=== PATIENT | female | born 1970 | race Caucasian/White ===

== ENCOUNTER 2016-08-31 12:34 | Emergency (ER) | payer SELFPAY ==
--- NOTE | 2016-08-31 13:40 | ER Document Report ---
HPI - HPI Pain Level: Denies Context: 46 yo female c/o facial pain, purulent nasal drainage and cough x 5 days. subjective fever, + chills Associated Symptoms: Chills, Nonproductive cough. denies: Fever Exacerbated by: Supine Relieved by: Denies Similar symptoms previously: No Recently seen / treated by doctor: No - ROS Systems Reviewed and Negative: Yes All other systems reviewed and negative - REPRODUCTIVE LMP: TUBAL Reproductive: DENIES: : - DERM Skin Color: Normal, [place] Past Medical History - General Information source: Patient - Social History Smoking Status: Current Every Day Smoker Frequency of alcohol use: None Drug Abuse: None Lives with: Family Family History: Reviewed & Not Pertinent Pulmonary Medical History: Reports: Hx Bronchitis, Hx Pneumonia - 1997 Neurological Medical History: Reports: Hx Migraine Renal/ Medical History: Denies: Hx Peritoneal Dialysis Past Surgical History: Reports: Hx Tubal Ligation - Immunizations Hx Diphtheria, Pertussis, Tetanus Vaccination: No Vertical Provider Document - CONSTITUTIONAL Agree With Documented VS: Yes Exam Limitations: No Limitations General Appearance: WD/WN, No Apparent Distress - INFECTION CONTROL TRAVEL OUTSIDE OF THE [place] IN LAST 30 DAYS: No - HEENT HEENT: Atraumatic Notes: + tenderness right frontal and maxillary sinuses - NECK Neck: Normal Inspection, Supple - RESPIRATORY Respiratory: Breath Sounds Normal, No Respiratory Distress O2 Sat by Pulse Oximetry: 96 - CARDIOVASCULAR Cardiovascular: Regular Rate, Regular Rhythm - GI/ABDOMEN Gastrointestinal: Abdomen Soft, Abdomen Non-Tender - MUSCULOSKELETAL/EXTREMETIES Musculoskeletal/Extremeties: MAEW, FROM - NEURO Level of Consciousness: Awake, Alert, Appropriate Course - Vital Signs Vital signs: Temp Pulse Resp BP Pulse Ox 98.2 F 98 14 116/79 96 08/31/16 12:38 08/31/16 12:38 08/31/16 12:38 08/31/16 12:38 08/31/16 12:38 Discharge - Discharge Clinical Impression: Sinusitis Qualifiers: Sinusitis location: unspecified location Chronicity: acute Recurrence: non- recurrent Qualified Code(s): J01.90 - Acute sinusitis, unspecified Instructions: Sinusitis ([facility]), Antibiotic Therapy ([facility]), Oral Narcotic Medication ([facility]) Additional Instructions: Take meds as prescribed recommend Mucinex in addition to prescribed meds push water intake follow up with primary care if symptoms persist or worsen Prescriptions: Amoxicillin 875 mg PO BID #20 tablet Fluconazole [Diflucan] 150 mg PO ONCE PRN #1 tablet PRN Reason: Hydrocodone/Acetaminophen [[address] 5-325 mg Tablet] 1 tab PO Q4 PRN #10 tablet PRN Reason:
[2016-08-31 14:11] VITALS: BP 109/74
== END 2016-08-31 14:10 | disposition home or self-care (01) ==
LOC: ER 12:34
DX: J01.90 Acute sinusitis, unspecified (principal); R51 Headache; R05 Cough; R50.9 Fever, unspecified; F17.200 Nicotine dependence, unspecified, uncomplicated; Z98.51 Tubal ligation status
CPT/HCPCS: 99283

== ENCOUNTER 2016-10-01 10:38 | Emergency (ER) | payer SELFPAY ==
[2016-10-01 10:43] VITALS: BP 134/107
--- NOTE | 2016-10-01 11:12 | ER Document Report ---
ED Oral Problem - General Chief Complaint: Toothache Stated Complaint: TOOTH PAIN Time Seen by Provider: 10/01/16 11:02 Mode of Arrival: Ambulatory Information source: Patient TRAVEL OUTSIDE OF THE [place] IN LAST 30 DAYS: No - HPI Patient complains to provider of: Jaw pain - This 46-year-old female presents to the emergency room today stating she had discomfort to her right lower jawline at the molar. - Related Data Allergies/Adverse Reactions: No Known Allergies Allergy (Verified 10/01/16 10:43) Past Medical History - General Information source: Patient - Social History Smoking Status: Current Every Day Smoker Cigarette use (# per day): Yes Chew tobacco use (# tins/day): No Smoking Education Provided: No Family History: Reviewed & Not Pertinent Patient has suicidal ideation: No Patient has homicidal ideation: No - Past Medical History Cardiac Medical History: Reports: Hx Hypertension Pulmonary Medical History: Reports: Hx Bronchitis, Hx Pneumonia - 1997 Neurological Medical History: Reports: Hx Migraine Renal/ Medical History: Denies: Hx Peritoneal Dialysis Past Surgical History: Reports: Hx Tubal Ligation - Immunizations Hx Diphtheria, Pertussis, Tetanus Vaccination: No Review of Systems - Review of Systems Constitutional: No symptoms reported EENT: No symptoms reported Cardiovascular: No symptoms reported Respiratory: No symptoms reported Gastrointestinal: No symptoms reported Genitourinary: No symptoms reported Female Genitourinary: No symptoms reported Musculoskeletal: No symptoms reported Skin: No symptoms reported Hematologic/Lymphatic: No symptoms reported Neurological/Psychological: No symptoms reported Physical Exam - Vital signs Vitals: Temp Pulse Resp BP Pulse Ox 97.8 F 109 H 20 134/107 H 96 10/01/16 10:41 10/01/16 10:41 10/01/16 10:41 10/01/16 10:41 10/01/16 10:41 Interpretation: Normal - General General appearance: Appears well, Alert - HEENT Head: Normocephalic, Atraumatic Eyes: Normal Pupils: PERRL Teeth diagram: 1 - Tender decay abscess at gumline - Respiratory Respiratory status: No respiratory distress Chest status: Nontender Breath sounds: Normal Chest palpation: Normal - Cardiovascular Rhythm: Regular Heart sounds: Normal auscultation Murmur: No - Abdominal Inspection: Normal Distension: No distension Bowel sounds: Normal Tenderness: Nontender Organomegaly: No organomegaly - Back Back: Normal, Nontender - Extremities General upper extremity: Normal inspection, Nontender, Normal color, Normal ROM , Normal temperature General lower extremity: Normal inspection, Nontender, Normal color, Normal ROM , Normal temperature, Normal weight bearing. No: Mckinley's sign - Neurological Neuro grossly intact: Yes Cognition: Normal Orientation: AAOx4 Tyler Coma Scale Eye Opening: Spontaneous Tyler Coma Scale Verbal: Oriented Tyler Coma Scale Motor: Obeys Commands Edith Coma Scale Total: 15 Speech: Normal Motor strength normal: LUE, RUE, LLE, RLE Sensory: Normal - Psychological Associated symptoms: Normal affect, Normal mood - Skin Skin Temperature: Warm Skin Moisture: Dry Skin Color: Normal Course - Re-evaluation Re-evalutation: 10/01/16 11:08 Oversedation about her dentition fact that she smokes she will be looking to follow-up with a dentist. She also stated that she does have some discomfort which usually occurs about an hour or 2 after she eats that is relieved by Tums. This been ongoing for multiple years. She has no exertional chest pain no exertional shortness of breath no exertional dyspnea no diaphoresis again the symptoms have been going on for years and occurs about 2 hours after she eats she notices differences with deep fried fatty foods we discussed triggers such as caffeine chocolate peppermint was advised to take Prevacid over-the- counter or Pepcid follow-up with PMD in 3-5 days consider H. pylori testing outpatient. - Vital Signs Vital signs: Temp Pulse Resp BP Pulse Ox 97.8 F 109 H 20 134/107 H 96 10/01/16 10:41 10/01/16 10:41 10/01/16 10:41 10/01/16 10:41 10/01/16 10:41 Discharge - Discharge Clinical Impression: Dental abscess, FH: peptic ulcer disease Disposition: HOME, SELF-CARE Instructions: Abscess ([facility]), Penicillin V K ([facility]) Prescriptions: Famotidine [Pepcid 20 mg Tablet] 20 mg PO DAILY #12 tablet Penicillin V Potassium [Penicillin Vk 500 mg Tablet] 500 mg PO BID #20 tablet
== END 2016-10-01 11:20 | disposition home or self-care (01) ==
LOC: ER 10:38
DX: K04.7 Periapical abscess without sinus (principal); K27.9 Peptic ulcer, site unspecified, unspecified as acute or chronic, without hemorrhage or perforation; K08.9 Disorder of teeth and supporting structures, unspecified; F17.210 Nicotine dependence, cigarettes, uncomplicated; I10 Essential (primary) hypertension; Z98.51 Tubal ligation status
CPT/HCPCS: 99282

== ENCOUNTER 2017-07-11 12:00 | Emergency (ER) | payer SELFPAY ==
[2017-07-11] MEDS ORDERED: METHOCARBAMOL 500 MG TABLET PO ONE (12:52)
[2017-07-11] MEDS ORDERED: OXYCODONE-ACETAMINOPHEN 5-325 MG TABLET PO ONE (12:52)
--- NOTE | 2017-07-11 12:53 | ER Document Report ---
ED Neck/Back Problem - General Chief Complaint: Back Pain Stated Complaint: BACK PAIN Time Seen by Provider: 07/11/17 12:45 Mode of Arrival: Ambulatory Information source: Patient Notes: Patient is a 47-year-old female who presents to the ER today for low back pain radiating down the backs of both legs down to the toes per patient. She denies any numbness or tingling, loss of bladder or bowel function. Patient has a history of chronic back pain. She denies any injury. TRAVEL OUTSIDE OF THE [place] IN LAST 30 DAYS: No - Related Data Allergies/Adverse Reactions: No Known Allergies Allergy (Verified 07/11/17 12:01) Past Medical History - General Information source: Patient - Social History Smoking Status: Unknown if Ever Smoked Family History: Reviewed & Not Pertinent - Past Medical History Cardiac Medical History: Reports: Hx Hypertension Pulmonary Medical History: Reports: Hx Bronchitis, Hx Pneumonia - 1997 Neurological Medical History: Reports: Hx Migraine Renal/ Medical History: Denies: Hx Peritoneal Dialysis Past Surgical History: Reports: Hx Tubal Ligation - Immunizations Hx Diphtheria, Pertussis, Tetanus Vaccination: No Review of Systems - Review of Systems Constitutional: No symptoms reported EENT: No symptoms reported Cardiovascular: No symptoms reported Respiratory: No symptoms reported Gastrointestinal: No symptoms reported Genitourinary: No symptoms reported Female Genitourinary: No symptoms reported Musculoskeletal: See HPI Skin: No symptoms reported Hematologic/Lymphatic: No symptoms reported Neurological/Psychological: No symptoms reported Physical Exam - Vital signs Vitals: Temp Pulse Resp BP Pulse Ox 98.8 F 98 19 121/70 98 07/11/17 12:06 07/11/17 12:06 07/11/17 12:06 07/11/17 12:06 07/11/17 12:06 - Notes Notes: PHYSICAL EXAMINATION: GENERAL: Obviously uncomfortable, but in no acute distress. HEAD: Atraumatic, normocephalic. EYES: Pupils equal round and reactive to light, extraocular movements intact, sclera anicteric, conjunctiva are normal. NECK: Normal range of motion, supple without lymphadenopathy LUNGS: CTAB and equal. No wheezes rales or rhonchi. HEART: Regular rate and rhythm without murmurs ABDOMEN: Soft, no tenderness. No guarding, no rebound BACK: Lumbar vertebral tenderness, limited ROM secondary to pain, tender to bilateral SI joints GI/: no CVA tenderness EXTREMITIES: Normal range of motion, no pitting edema. No cyanosis. NEUROLOGICAL: Cranial nerves grossly intact. Normal sensory/motor exams. Good and equal strength bilaterally, Kernig and Brudzinski's signs negative, Romberg' s test normal, normal heel to prather testing PSYCH: Normal mood, normal affect. SKIN: Warm, Dry, normal turgor, no rashes or lesions noted Course - Re-evaluation Re-evalutation: 07/11/17 16:49 Lumbar x-ray, SI joint x-rays negative for any acute pathology. Patient feels better after muscle relaxer. - Vital Signs Vital signs: Temp Pulse Resp BP Pulse Ox 98.2 F 84 18 131/84 H 95 07/11/17 14:58 07/11/17 14:58 07/11/17 14:58 07/11/17 14:58 07/11/17 14:58 Discharge - Discharge Clinical Impression: Back pain with sciatica Condition: Stable Disposition: HOME, SELF-CARE Additional Instructions: Return immediately for any new or worsening symptoms. Follow up with primary care provider, call tomorrow to make followup appointment. Prescriptions: Hydrocodone/Acetaminophen [[place] 5-325 mg Tablet] 1 tab PO Q4 #12 tablet Methocarbamol [Robaxin 500 mg Tablet] 1,000 mg PO BID PRN #40 tablet PRN Reason: Prednisone 60 mg PO DAILY #15 tablet Forms: Return to Work
--- NOTE | 2017-07-11 13:58 | RADIOLOGY REPORT (SQ) ---
EXAM DESCRIPTION: L SPINE WHOLE COMPLETED DATE/TIME: 07/11/2017 1:18 pm REASON FOR STUDY: back pain COMPARISON: None. NUMBER OF VIEWS: Five views including obliques. TECHNIQUE: AP, lateral, oblique, and sacral radiographic images acquired of the lumbar spine. LIMITATIONS: None. FINDINGS: MINERALIZATION: Normal. SEGMENTATION: Normal. No transitional anatomy. ALIGNMENT: Normal. VERTEBRAE: Maintained height. No fracture or worrisome bone lesion. DISCS: Preserved height. No significant osteophytes or end plate irregularity. POSTERIOR ELEMENTS: Pedicles and facets are intact. No pars defect or posterior arch defects. HARDWARE: None in the spine. PARASPINAL SOFT TISSUES: Normal. PELVIS: Intact as visualized. No fractures or worrisome bone lesions. SI joints intact. OTHER: No other significant finding. IMPRESSION: NORMAL 5 VIEW LUMBAR SPINE. TECHNICAL DOCUMENTATION: JOB ID: [id number] [employer]- All Rights Reserved Reading location - IP/workstation name: [email or web address]
--- NOTE | 2017-07-11 14:14 | RADIOLOGY REPORT (SQ) ---
EXAM DESCRIPTION: SACROILIAC JOINTS 3 OR MORE COMPLETED DATE/TIME: 07/11/2017 1:18 pm REASON FOR STUDY: back pain COMPARISON: None. NUMBER OF VIEWS: Three views. TECHNIQUE: AP and oblique views of the sacroiliac joints. LIMITATIONS: None. FINDINGS: MINERALIZATION: Normal. BONES: No acute fracture or dislocation. No worrisome bone lesions. No significant osteophytes. JOINTS: The sacroiliac joints are patent. No unusual widening, sclerosis, or fusion. SOFT TISSUES: No soft tissue swelling. No radio-opaque foreign body. OTHER: No other significant finding. IMPRESSION: NORMAL STUDY OF THE SACROILIAC JOINTS. TECHNICAL DOCUMENTATION: JOB ID: [id number] [employer]- All Rights Reserved Reading location - IP/workstation name: [email or web address]
[2017-07-11 14:59] VITALS: BP 131/84
== END 2017-07-11 14:57 | disposition home or self-care (01) ==
LOC: ER 12:00
DX: M54.40 Lumbago with sciatica, unspecified side (principal); I10 Essential (primary) hypertension
CPT/HCPCS: 72110; 72202; 99283

== ENCOUNTER 2018-05-13 15:56 | Emergency (ER) | payer SELFPAY ==
--- NOTE | 2018-05-13 16:11 | ER Document Report ---
ED Medical Screen (RME) - General Chief Complaint: Psych Problem Stated Complaint: SI Time Seen by Provider: 05/13/18 16:06 TRAVEL OUTSIDE OF THE [place] IN LAST 30 DAYS: No - Related Data Allergies/Adverse Reactions: No Known Allergies Allergy (Verified 07/11/17 12:01) Past Medical History - Past Medical History Cardiac Medical History: Reports: Hx Hypertension Pulmonary Medical History: Reports: Hx Bronchitis, Hx Pneumonia - 1997 Neurological Medical History: Reports: Hx Migraine Renal/ Medical History: Denies: Hx Peritoneal Dialysis Past Surgical History: Reports: Hx Tubal Ligation - Immunizations Hx Diphtheria, Pertussis, Tetanus Vaccination: No Course - Re-evaluation Re-evalutation: 05/13/18 16:11 Suicidal 47-year-old woman who has a past medical history significant for bipolar disorder.
[2018-05-13 16:32] LABS: ABSOLUTE BASOPHILS # (AUTO) 0.1 10^3/uL (0.0-0.2); ABSOLUTE EOSINOPHILS # (AUTO) 0.1 10^3/uL (0.0-0.6); ABSOLUTE LYMPHOCYTES (AUTO) 1.8 10^3/uL (0.5-4.7); ABSOLUTE MONOCYTES (AUTO) 0.4 10^3/uL (0.1-1.4); ABSOLUTE NEUT (AUTO) 5.9 10^3/uL (1.7-8.2); BASOPHILS % (AUTO) 0.9 % (0-2); EOSINOPHILS % (AUTO) 0.7 % (0-6); HEMATOCRIT 48.7 % (36.0-47.0); HEMOGLOBIN 16.9 g/dL (12.0-15.5); LYMPHOCYTES % (AUTO) 22.2 % (13-45); MEAN CORPUSCULAR HGB CONC 34.7 g/dL (32.0-36.0); MEAN CORPUSCULAR VOLUME 89 fl (80-97); MONOCYTES % (AUTO) 5.1 % (3-13); PLATELET COUNT 348 10^3/uL (150-450); RED BLOOD COUNT 5.46 10^6/uL (3.72-5.28); RED CELL DISTRIBUTION WIDTH 14.4 % (11.5-14.0); SEGMENTED NEUTROPHILS % (AUTO) 71.1 % (42-78); TOTAL CELLS COUNTED % (AUTO) 100 %; WHITE BLOOD COUNT 8.3 10^3/uL (4.0-10.5)
[2018-05-13 16:36] LABS: APPEARANCE,URINE CLOUDY; BILIRUBIN,URINE NEGATIVE (NEGATIVE); COLOR,URINE YELLOW; GLUCOSE, URINE NEGATIVE (NEGATIVE); KETONES,URINE 20 mg/dL (NEGATIVE); LEUKOCYTE ESTERASE,URINE LARGE (NEGATIVE); NITRITE,URINE NEGATIVE (NEGATIVE); PROTEIN,URINE NEGATIVE (NEGATIVE); URINE SPECIFIC GRAVITY 1.019; UROBILINOGEN,URINE NEGATIVE mg/dL (<2.0)
[2018-05-13 16:45] LABS: ALANINE AMINOTRANSFERASE 23 U/L (9-52); ALBUMIN 4.4 g/dL (3.5-5.0); ALKALINE PHOSPHATASE 105 U/L (38-126); ANION GAP 10 (5-19); ASPARTATE AMINO TRANSFERASE 23 U/L (14-36); BILIRUBIN,DIRECT 0.2 mg/dL (0.0-0.4); BILIRUBIN,TOTAL 0.6 mg/dL (0.2-1.3); BLOOD UREA NITROGEN 12 mg/dL (7-20); CALCIUM 9.9 mg/dL (8.4-10.2); CARBON DIOXIDE 22 mmol/L (22-30); CHLORIDE 107 mmol/L (98-107); GLUCOSE 104 mg/dL (75-110); POTASSIUM 4.2 mmol/L (3.6-5.0); SODIUM 139.2 mmol/L (137-145); TOTAL PROTEIN 7.5 g/dL (6.3-8.2)
[2018-05-13 16:48] LABS: ACETAMINOPHEN < 10 ug/mL (10-30); ALCOHOL < 10 mg/dL (NONE DETECTED); SALICYLATE < 1.0 mg/dL (2.0-20.0)
[2018-05-13 16:53] LABS: URINE AMPHETAMINES SCREEN NEGATIVE; URINE BARBITURATES SCREEN NEGATIVE; URINE BENZODIAZEPINES SCREEN NEGATIVE; URINE COCAINE SCREEN NEGATIVE; URINE MARIJUANA (THC) SCREEN UNCONFIRMED POSITIVE; URINE METHADONE SCREEN NEGATIVE; URINE PHENCYCLIDINE SCREEN NEGATIVE
[2018-05-13] MEDS ORDERED: OLANZAPINE INJ/PF 10 MG SDV IM ONE (17:08)
[2018-05-13] MEDS ORDERED: CHLORPROMAZINE HCL INJ 25 MG/1 ML AMPULE IM PRN (17:09)
--- NOTE | 2018-05-13 17:12 | ER Document Report ---
Addendum entered and electronically signed by INO CROFT LPCA 05/14/18 11:57: Discharge - Discharge Clinical Impression: Urinary tract infection Qualifiers: Hematuria presence: without hematuria Condition: Stable Disposition: HOME, SELF-CARE Additional Instructions: You have been evaluated and assessed at [facility] Emergency Department by both the medical and behavioral health teams after presenting for grief and suicidal ideation and deemed appropriate for discharge. While in the ED, you received an initial medical screening, lab work, EKG, medications, direct staff observation, clinical evaluation, physician assessments, and outpatient resources. You are encouraged to follow up with your outpatient provider at [facility] on 05/15/18 for medication management and secure an appointment with your therapist as soon as possible. You are also encouraged to maintain compliance with your prescribed m edication and utilize mobile crisis services as needed. DEPRESSION: Your evaluation reveals that you have mental depression. While symptoms may be vague, they often include disturbance of sleep, fatigue, loss of appetite, and general loss of interest in life. While depression may be a side effect of drugs, or a reaction to a major change in your life, many cases have no known cause. If depression is acute, and related to a major loss in your life, you can expect it to clear completely with time. If you have been depressed a long time, are prone to repeated bouts of depression or low mood, or have been thinking of suicide, get help. Depression can be treated with anti-depressant medication and counselling. Long-term depression will often take a few weeks to clear, even with appropriate medication. Follow-up care is important. SUICIDAL IDEATION: Suicidal ideation is a common medical term for thoughts about suicide, which may be as detailed as a formulated plan, without the suicidal act itself. Although most people who undergo suicidal ideation do not commit suicide, some go on to make suicide attempts. The range of suicidal ideation varies greatly from fleeting to detailed planning, role playing, and unsuccessful attempts. While thoughts about suicide are common, most people do not carry out serious actions to commit suicide. Based upon your evaluation and discussion with you, we do not believe you are currently at risk to act upon your thoughts of suicide. You have agreed to return to the Emergency Department, at any time, if you feel inclined to act upon your suicidal thoughts. FOLLOW-UP CARE: If you have been referred to a physician for follow-up care, call the physicians office for an appointment as you were instructed or within the next two days. If you experience worsening or a significant change in your symptoms, notify the physician immediately or return to the Emergency Department at any time for re-evaluation. Bipolar Disorder Bipolar disorder is also called manic-depressive disorder. Depression alternates with brain hyperactivity called jodi. Each phase lasts from several days to a few weeks. We don't know exactly what causes bipolar disorder, but it's treatable. During the "manic phase," you may feel elated and energetic. You may have racing thoughts, rapid speech, increased activity, and grandiose ideas. During this time, you may not realize how poor your judgement is. Inappropriate spending, drug abuse, excessive alcohol use, marriage problems, and irresponsible sexual behavior are common during the manic phase. During the "depressive phase," you might feel depressed, guilty, worthless, fatigued, and unable to concentrate. You might have thoughts of suicide. Good treatments are available for bipolar disorder. [place] is a classic drug for bipolar disorder, and is still often useful. If the manic phase is very mild, an antidepressant alone can be prescribed. If the manic phase is very severe, an antipsychotic medicine (such as Haldol) may be needed. The treatment must be matched to your symptoms, so it's important to work closely with your ps ycalatric care provider. Contact your physician, the hospital emergency center, crisis line, or your counsellor if you are losing control or having self-destructive thoughts. Original Note: ED General - General Chief Complaint: Psych Problem Stated Complaint: SI Time Seen by Provider: 05/13/18 16:06 Mode of Arrival: Ambulatory Notes: 47-year-old female with a history of anxiety, depression, bipolar disorder presents the emergency department with suicidal ID other this morning and she has been thinking about hurting herself. Patient states that her mom was her only reason for living. She states that now that she is gone she does not feel like living anymore. Patient states that she has been thinking about overdosing or shooting herself. Patient states that she did attempt to overdose on Benadryl in 1996. She states that when her sister in 2006 she was grieving and went to have [place]. She is currently following up with Dr. Nunes at [facility]. She's currently taking her medications as directed. She's on celexa, zyprexa, buspar, clonidine, lisinopril. She denies h omicidal ideations, delusions, hallucinations. TRAVEL OUTSIDE OF THE [place] IN LAST 30 DAYS: No - HPI Onset: This morning Onset/Duration: Sudden Quality of pain: No pain Severity: None Pain Level: Denies Associated symptoms: None Exacerbated by: Denies Relieved by: Denies Similar symptoms previously: Yes Recently seen / treated by doctor: No - Related Data Allergies/Adverse Reactions: No Known Allergies Allergy (Verified 07/11/17 12:01) Past Medical History - General Information source: Patient - Social History Smoking Status: Current Every Day Smoker Frequency of alcohol use: None Drug Abuse: Marijuana Family History: Reviewed & Not Pertinent Patient has suicidal ideation: Yes Patient has homicidal ideation: No - Past Medical History Cardiac Medical History: Reports: Hx Hypertension Pulmonary Medical History: Reports: Hx Bronchitis, Hx Pneumonia - 1997 Neurological Medical History: Reports: Hx Migraine Renal/ Medical History: Denies: Hx Peritoneal Dialysis Psychiatric Medical History: Reports: Hx Bipolar Disorder, Hx Depression Past Surgical History: Reports: Hx Tubal Ligation - Immunizations Hx Diphtheria, Pertussis, Tetanus Vaccination: No Review of Systems - Review of Systems Constitutional: No symptoms reported EENT: No symptoms reported Cardiovascular: No symptoms reported Respiratory: No symptoms reported Gastrointestinal: No symptoms reported Genitourinary: No symptoms reported Female Genitourinary: No symptoms reported Musculoskeletal: No symptoms reported Skin: No symptoms reported Hematologic/Lymphatic: No symptoms reported Neurological/Psychological: Suicidal ideation Physical Exam - Notes Notes: PHYSICAL EXAMINATION: GENERAL: Well-appearing, well-nourished and in no acute distress. HEAD: Atraumatic, normocephalic. EYES: Pupils equal round and reactive to light, extraocular movements intact, conjunctiva are normal. ENT: Nares patent, oropharynx clear without exudates. Moist mucous membranes. NECK: Normal range of motion, supple without lymphadenopathy LUNGS: Breath sounds clear to auscultation bilaterally and equal. No wheezes rales or rhonchi. HEART: Regular rate and rhythm without murmurs ABDOMEN: Soft, nontender, nondistended abdomen. No guarding, no rebound. No masses appreciated. Female : deferred Musculoskeletal: Normal range of motion, no pitting or edema. No cyanosis. NEUROLOGICAL: Cranial nerves grossly intact. Normal speech, normal gait. Normal sensory, motor exams PSYCH: Sad mood. Suicidal. SKIN: Warm, Dry, normal turgor, no rashes or lesions noted. Course - Re-evaluation Re-evalutation: 05/13/18 18:25 EKG: Ventricular rate 79, MD interval 116, cures duration 84, QTc 418, normal sinus rhythm. No ST segment elevation or depression. Behavioral health recommend giving the patient 10 mg of Zyprexa to help her sleep. Tomorrow start zyprexa 5mg BID. They also recommend 50 mg of Thorazine every 6 hours as needed for anxiety/agitation, Cogentin 1 mg daily, BuSpar 10 mg twice daily. Petition has been filled out. Behavioral health will reevaluate the patient tomorrow. 05/13/18 18:28 Urinalysis shows signs of infection. Patient given 1G of rocephin IM. 05/13/18 18:29 - Laboratory Result Diagrams: 05/13/18 16:20 05/13/18 16:20 Laboratory results interpreted by me: 05/13/18 05/13/18 05/13/18 16:19 16:20 16:20 RBC 5.46 H Hgb 16.9 H Hct 48.7 H RDW 14.4 H Urine Ketones 20 H Urine Blood SMALL H Ur Leukocyte Esterase LARGE H Salicylates < 1.0 L Acetaminophen < 10 L Discharge - Discharge Clinical Impression: Grieving Urinary tract infection Qualifiers: Hematuria presence: without hematuria
--- NOTE | 2018-05-13 17:36 | PSYCHOLOGICAL NOTE ---
Psych Note - Psych Note Date seen by psych provider: 05/13/18 Psych Note: Reason for Consult: Suicidal ideation Suicidal 47-year-old woman who has a past medical history significant for bipolar disorder Clinician spoke with mobile fur floor worker, Joshua Hong, who reports the patient has a diagnosis of bipolar and anxiety disorder. 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 She reports that "mom was the only reason to live." Patient also presents with complicated bereavement with her sister's in 2006. Patient does not currently have a plan for her suicidal ideations; however, reports " I would not use a knife but I would overdose or shot myself if I could." Patient has an outpatient mental health provider through [facility] for medication management and therapeutic services. She did previous suicide attempt in 1996 which resulted in inpatient psychiatric treatment. Medication recommendations per [facility]'s contracted psychiatrist Dr Stephanie YU are as follows Zyprexa 10mg once Cogentin 1mg daily Thorazine 50mg every 6 hours as needed Buspar 10mg twice daily Diagnosis Bereavement Bipolar disorder Impression/plan: patent is recommended for IVC petition for overnight mental health observation.
[2018-05-13] MEDS: BUSPIRONE HCL 10 MG TABLET PO SCH (17:56)
[2018-05-13] MEDS: BENZTROPINE MESYLATE 1 MG TABLET PO SCH (17:56)
[2018-05-13] MEDS ORDERED: CEFTRIAXONE INJ 1000 MG VIAL IM ONE (18:13)
[2018-05-13] MEDS ORDERED: LIDOCAINE 1% INJ-PF (10 MG/ML) 30 ML SDV INFIL ONE (18:13)
--- NOTE | 2018-05-13 22:12 | EKG REPORT ---
SEVERITY:- NORMAL ECG - SINUS RHYTHM : Confirmed by: Radha Yañez MD 13-May-2018 22:11:51
[2018-05-14] MEDS: BENZTROPINE MESYLATE 1 MG TABLET PO SCH (09:24)
[2018-05-14] MEDS: BUSPIRONE HCL 10 MG TABLET PO SCH (09:24)
[2018-05-14] MEDS ORDERED: OLANZAPINE 5 MG TABLET PO SCH (10:00)
--- NOTE | 2018-05-14 12:49 | ER Document Report ---
Doctor's Note Notes: 05/14/18 19:10 This 47-year-old female was seen and evaluated by her mental health team after having some thoughts of self-harm because of her mother dying having little support system around. She was deemed appropriate for outpatient management currently does have a support system at home and has good follow-up scheduled. She is comfortable with this plan at this time denies any suicidal desire to believe that she is safe. Discharge - Discharge Clinical Impression: Urinary tract infection Qualifiers: Urinary tract infection type: acute cystitis Hematuria presence: without hematuria Qualified Code(s): N30.00 - Acute cystitis without hematuria Condition: Stable Disposition: HOME, SELF-CARE Instructions: Urinary Tract Infection ([facility]) Additional Instructions: You have been evaluated and assessed at [facility] Emergency Department by both the medical and behavioral health teams after presenting for grief and suicidal ideation and deemed appropriate for discharge. While in the ED, you received an initial medical screening, lab work, EKG, medications, direct staff observation, clinical evaluation, physician assessments, and outpatient resources. You are encouraged to follow up with your outpatient provider at [facility] on 05/15/18 for medication management and secure an appointment with your therapist as soon as possible. You are also encouraged to maintain compliance with your prescribed medication and utilize mobile crisis services as needed. DEPRESSION: Your evaluation reveals that you have mental depression. While symptoms may be vague, they often include disturbance of sleep, fatigue, loss of appetite, and general loss of interest in life. While depression may be a side effect of drugs, or a reaction to a major change in your life, many cases have no known cause. If depression is acute, and related to a major loss in your life, you can expect it to clear completely with time. If you have been depressed a long time, are prone to repeated bouts of depression or low mood, or have been thinking of suicide, get help. Depression can be treated with anti-depressant medication and counselling. Long-term depression will often take a few weeks to clear, even with appropriate medication. Follow-up care is important. SUICIDAL IDEATION: Suicidal ideation is a common medical term for thoughts about suicide, which may be as detailed as a formulated plan, without the suicidal act itself. Although most people who undergo suicidal ideation do not commit suicide, some go on to make suicide attempts. The range of suicidal ideation varies greatly from fleeting to detailed planning, role playing, and unsuccessful attempts. While thoughts about suicide are common, most people do not carry out serious actions to commit suicide. Based upon your evaluation and discussion with you, we do not believe you are currently at risk to act upon your thoughts of suicide. You have agreed to return to the Emergency Department, at any time, if you feel inclined to act upon your suicidal thoughts. FOLLOW-UP CARE: If you have been referred to a physician for follow-up care, call the physicians office for an appointment as you were instructed or within the next two days. If you experience worsening or a significant change in your symptoms, notify the physician immediately or return to the Emergency Department at any time for re-evaluation. Bipolar Disorder Bipolar disorder is also called manic-depressive disorder. Depression alternates with brain hyperactivity called jodi. Each phase lasts from several days to a few weeks. We don't know exactly what causes bipolar disorder, but it's treatable. During the "manic phase," you may feel elated and energetic. You may have racing thoughts, rapid speech, increased activity, and grandiose ideas. During this time, you may not realize how poor your judgement is. Inappropriate spending, drug abuse, excessive alcohol use, marriage problems, and irresponsible sexual behavior are common during the manic phase. During the "depressive phase," you might feel depressed, guilty, worthless, fatigued, and unable to concentrate. You might have thoughts of suicide. Good treatments are available for bipolar disorder. Garza-Salinas Ii is a classic drug for bipolar disorder, and is still often useful. If the manic phase is very mild, an antidepressant alone can be prescribed. If the manic phase is very severe, an antipsychotic medicine (such as Haldol) may be needed. The treatment must be matched to your symptoms, so it's important to work closely with your psychiatric care provider. Contact your physician, the hospital emergency center, crisis line, or your counsellor if you are losing control or having self-destructive thoughts. Prescriptions: Nitrofurantoin Macrocrystal [Nitrofurantoin] 1,000 mg PO BID #20 capsule
[2018-05-14 12:59] VITALS: BP 123/103
--- NOTE | 2018-05-14 15:27 | PSYCHOLOGICAL NOTE ---
Psych Note - Psych Note Date seen by psych provider: 05/14/18 Time seen by psych provider: 10:00 Psych Note: Reason for Consult: Suicidal ideation Contact Permissions: Isabel [phone] and Melissa [phone] Patient is a 47 yo female presenting to the ED with I[facility] for SI related to her mother's yesterday. 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 Math Teacher explained the grieving process, normalizing patient's expressed concerns e.g. thinking about past losses, feeling surreal today/overwhelmed yesterday and validated her. Patient shared about her relationship with her sons and grandchildren who live outside the state, shared about her divorce in 2017, and sister's due to OD in 2006. Patient reports being stable on medication for bipolar disorder for many years however, had a suicide attempt by OD on Benadryl in 1996 and inpatient psychiatric hospitalization. She endorses passive SI as thoughts of wanting to be with her mother, father, and sister but denies intent to act on them. She identifies therapy "really helps", pets "make me feel better", and friends as "very helpful/supportive/will make sure I'm okay". Patient identifies her children and grandchildren as her purpose for continuing to live. Isabel at bedside reassures patient that she will stay with herself and Melissa until she feels stable/stronger, will provide additional monitoring supervision of medications, will provide transportation to medication appointment [facility] and assist patient in securing an earlier therapy appointment. Diagnosis: Bereavement Bipolar disorder, per hx Medication recommendations asa per psychiatric provider, Dr. Brown are as follows: Zyprexa 10mg once Cogentin 1mg daily Thorazine 50mg every 6 hours as needed Buspar 10mg twice daily Impression/plan: Patient is psychiatrically clear from acute psychiatric services and recommended rescind IVC due to patient is no longer at risk of harm to self or others aeb patient denies SI, reports her children and pets as reason to live, identifies supports in her life, and is future-focused with concern of her pets well-being in her absence and sons arrival from out of town. Plan is for patient to discharge to her identified supports and stay in their residence until feeling up to returning to her home. Patient and her friend verbalize intent to present to outpatient provider [facility] for medication appointment on 05/15/18 and seek earliest available therapy appointment, and utilize Mobile crisis services as needed. Supports will provide additional monitoring and medication supervision/administration. Consulted Dr. Wilson in the care and treatment of this patient and ED physician who is in agreement with recommendation and disposition.
== END 2018-05-14 12:59 | disposition home or self-care (01) ==
LOC: ER 15:56
DX: F43.21 Adjustment disorder with depressed mood (principal); N39.0 Urinary tract infection, site not specified; R45.851 Suicidal ideations; F31.9 Bipolar disorder, unspecified; F41.9 Anxiety disorder, unspecified; Z79.899 Other long term (current) drug therapy; Z63.4 Disappearance and death of family member; I10 Essential (primary) hypertension; F17.200 Nicotine dependence, unspecified, uncomplicated
CPT/HCPCS: 93005; 99285; 96372; 36415; 80307 ×4; 84703; 85025; 80053; 81001; 93010; J3490; J0696

== ENCOUNTER 2018-07-19 12:54 | Emergency (ER) | payer SELFPAY ==
--- NOTE | 2018-07-19 13:55 | ER Document Report ---
ED Medical Screen (RME) - General Chief Complaint: S/S of Possible Stroke Stated Complaint: NUMBNESS IN FACE Time Seen by Provider: 07/19/18 13:49 Mode of Arrival: Ambulatory Information source: Patient TRAVEL OUTSIDE OF THE [place] IN LAST 30 DAYS: No - HPI Notes: 07/19/18 13:50 48-year-old female presents the ED with complaints of new onset left-sided fa cial droop with right-sided facial numbness that she noticed that last night when she was talking with her girlfriend. Denies any numbness or tingling bilateral arms or legs. Denies any previous history of stroke, [place], blood disorders. Patient was concerned today because she is still having left-sided facial droop with right numbness in her face. Denies any new medications, travel or foods. Denies history of Vargas's palsy. Patient denies any trauma. Denies headache, chest pain, shortness of breath, blurred vision double vision loss of vision, ataxia, confusion. Patient did drive herself to the emergency room. I have greeted and performed a rapid initial assessment of this patient. A comprehensive ED assessment and evaluation of the patient, analysis of test results and completion of medical decision making process will be conducted by an additional ED providers. 07/19/18 14:09 - Related Data Allergies/Adverse Reactions: No Known Allergies Allergy (Verified 07/11/17 12:01) Past Medical History - Past Medical History Cardiac Medical History: Reports: Hx Hypertension Pulmonary Medical History: Reports: Hx Bronchitis, Hx Pneumonia - 1997 Neurological Medical History: Reports: Hx Migraine Renal/ Medical History: Denies: Hx Peritoneal Dialysis Psychiatric Medical History: Reports: Hx Bipolar Disorder, Hx Depression Past Surgical History: Reports: Hx Tubal Ligation - Immunizations Hx Diphtheria, Pertussis, Tetanus Vaccination: No Physical Exam - Vital signs Vitals: Pulse Resp BP Pulse Ox 88 14 139/84 H 96 07/19/18 13:44 07/19/18 13:44 07/19/18 13:44 07/19/18 13:44 - Neurological Neuro grossly intact: Yes Orientation: AAOx4 [place] Coma Scale Verbal: Oriented [place] Coma Scale Motor: Obeys Commands Speech: Normal Cerebellar coordination: Normal Motor strength normal: LUE, RUE, LLE, RLE Additional motor exam normals: Equal roll contour grinder Notes: Left-sided facial droop. Decreased sensation to right side of face. Able to raise eyebrows bilaterally. Difficulty with puffing out her cheeks. Poultry Farm Manager +2 equally and bilaterally. Strength 5 out of 5 in bilateral upper and lower extremities, no pronator drift or dysmetria noted Course - Vital Signs Vital signs: Temp Pulse Resp BP Pulse Ox 87 20 138/84 H 95 07/19/18 13:44 07/19/18 13:44 07/19/18 13:44 07/19/18 13:44
[2018-07-19] MEDS ORDERED: TETRACAINE HCL 0.5% OPH SOLN 4 ML OD ONE (14:06)
--- NOTE | 2018-07-19 14:13 | RADIOLOGY REPORT (SQ) ---
EXAM DESCRIPTION: CT HEAD WITHOUT COMPLETED DATE/TIME: 07/19/2018 1:57 pm REASON FOR STUDY: stroke symptoms COMPARISON: 05/17/2012 TECHNIQUE: Axial images acquired through the brain without intravenous contrast. Images reviewed wi th bone, brain and subdural windows. Additional sagittal and coronal reconstructions were generated. Images stored on PACS. All CT scanners at this facility use dose modulation, iterative reconstruction, and/or weight based d osing when appropriate to reduce radiation dose to as low as reasonably achievable (ALARA). [facility]: Dose Right [facility]: CareDose [facility]: Dose Right [facility]: Teradose 4D [facility]: Smart Technologies RADIATION DOSE: CT Rad equipment meets quality standard of care and radiation dose reduction techniq ues were employed. CTDIvol: 53.2 mGy. DLP: 1044 mGy-cm. mGy. LIMITATIONS: None. FINDINGS: VENTRICLES: Normal size and contour. CEREBRUM: No masses. No hemorrhage. No midline shift. No evidence for acute infarction. Normal gra y/white matter differentiation. No areas of low density in the white matter. CEREBELLUM: No masses. No hemorrhage. No alteration of density. No evidence for acute infarction. EXTRAAXIAL SPACES: No fluid collections. No masses. ORBITS AND GLOBE: No intra- or extraconal masses. Normal contour of globe without masses. CALVARIUM: No fracture. PARANASAL SINUSES: No fluid or mucosal thickening. SOFT TISSUES: No mass or hematoma. OTHER: No other significant finding. IMPRESSION: No acute intracranial pathology. EVIDENCE OF ACUTE STROKE: NO. COMMENT: Quality ID # [id number]: Final reports with documentation of one or more dose reduction techniques (e.g., Automated exposure control, adjustment of the mA and/or kV according to patient size, use of iterative reconstruction technique) TECHNICAL DOCUMENTATION: JOB ID: [id number] [email or web address]- All Rights Reserved Reading location - IP/workstation name: [email or web address]
[2018-07-19 15:05] LABS: ABSOLUTE BASOPHILS # (AUTO) 0.1 10^3/uL (0.0-0.2); ABSOLUTE EOSINOPHILS # (AUTO) 0.1 10^3/uL (0.0-0.6); ABSOLUTE LYMPHOCYTES (AUTO) 2.5 10^3/uL (0.5-4.7); ABSOLUTE MONOCYTES (AUTO) 0.6 10^3/uL (0.1-1.4); ABSOLUTE NEUT (AUTO) 4.8 10^3/uL (1.7-8.2); BASOPHILS % (AUTO) 1.2 % (0-2); EOSINOPHILS % (AUTO) 1.4 % (0-6); HEMATOCRIT 46.2 % (36.0-47.0); MEAN CORPUSCULAR HEMOGLOBIN 31.4 pg (27.0-33.4); MEAN CORPUSCULAR HGB CONC 34.6 g/dL (32.0-36.0); MEAN CORPUSCULAR VOLUME 91 fl (80-97); MONOCYTES % (AUTO) 7.1 % (3-13); PLATELET COUNT 263 10^3/uL (150-450); RED CELL DISTRIBUTION WIDTH 14.7 % (11.5-14.0); SEGMENTED NEUTROPHILS % (AUTO) 59.3 % (42-78); TOTAL CELLS COUNTED % (AUTO) 100 %
[2018-07-19 15:07] LABS: INTERNATIONAL RATION (INR) 0.85
[2018-07-19 16:07] LABS: ALANINE AMINOTRANSFERASE 17 U/L (9-52); ALBUMIN 4.4 g/dL (3.5-5.0); ALKALINE PHOSPHATASE 94 U/L (38-126); ANION GAP 8 (5-19); ASPARTATE AMINO TRANSFERASE 16 U/L (14-36); BILIRUBIN,DIRECT 0.3 mg/dL (0.0-0.4); BILIRUBIN,TOTAL 0.6 mg/dL (0.2-1.3); BLOOD UREA NITROGEN 13 mg/dL (7-20); CALCIUM 9.8 mg/dL (8.4-10.2); CARBON DIOXIDE 27 mmol/L (22-30); CHLORIDE 105 mmol/L (98-107); GLUCOSE 91 mg/dL (75-110); TOTAL PROTEIN 7.1 g/dL (6.3-8.2)
--- NOTE | 2018-07-19 18:56 | EKG REPORT ---
SEVERITY:- NORMAL ECG - SINUS RHYTHM : Confirmed by: Akhil Mccracken MD 19-Jul-2018 18:55:30
--- NOTE | 2018-07-19 20:38 | ER Document Report ---
Entered by ARTURO BOOTH SCRIBE 07/19/18 [id number] Acting as scribe for:BRONWYN DE LA GARZA DO ED General - General Chief Complaint: S/S of Possible Stroke Stated Complaint: NUMBNESS IN FACE Time Seen by Provider: 07/19/18 13:49 Mode of Arrival: Ambulatory Information source: Patient Notes: Patient is a 48 year old female presenting to the emergency department complaining of numbness of the face, bilateral hands and feet. Patient states for the last few days she has had numbness of the right side of the face and blurry vision of the right eye. She states her friends and family also noticed drooping on the left side of her face, around her lip. She states she is concer pura of a stroke due to her mother having a history of strokes. TRAVEL OUTSIDE OF THE [place] IN LAST 30 DAYS: No - Related Data Allergies/Adverse Reactions: No Known Allergies Allergy (Verified 07/11/17 12:01) Past Medical History - General Information source: Patient - Social History Smoking Status: Current Some Day Smoker Chew tobacco use (# tins/day): No Frequency of alcohol use: None Drug Abuse: Marijuana Family History: Reviewed & Not Pertinent Patient has suicidal ideation: No Patient has homicidal ideation: No - Past Medical History Cardiac Medical History: Reports: Hx Hypertension Pulmonary Medical History: Reports: Hx Bronchitis, Hx Pneumonia - 1997 Neurological Medical History: Reports: Hx Migraine Psychiatric Medical History: Reports: Hx Bipolar Disorder, Hx Depression Past Surgical History: Reports: Hx Tubal Ligation - Immunizations Hx Diphtheria, Pertussis, Tetanus Vaccination: No Review of Systems - Review of Systems Constitutional: No symptoms reported EENT: No symptoms reported Cardiovascular: No symptoms reported Respiratory: No symptoms reported Gastrointestinal: No symptoms reported Genitourinary: No symptoms reported Female Genitourinary: No symptoms reported Musculoskeletal: See HPI Skin: No symptoms reported Hematologic/Lymphatic: No symptoms reported Neurological/Psychological: See HPI Physical Exam - Vital signs Vitals: Pulse Resp BP Pulse Ox 88 14 139/84 H 96 07/19/18 13:44 07/19/18 13:44 07/19/18 13:44 07/19/18 13:44 - Notes Notes: GENERAL: Alert, interacts well. No acute distress. HEAD: Normocephalic, atraumatic. EYES: Pupils equal, round, and reactive to light. Extraocular movements intact. Right eye does not fully close with casual blinking, will fully close with determined blinking. Decreased sensation to the right side of the face. ENT: Oral mucosa moist, tongue midline. Tympanic membranes intact, no blisters, no Finnegan sign. NECK: Full range of motion. Supple. Trachea midline. LUNGS: Clear to auscultation bilaterally, no wheezes, rales, or rhonchi. No respiratory distress. HEART: Regular rate and rhythm. No murmurs, gallops, or rubs. ABDOMEN: Soft, non-tender,No guarding, rigidity, or rebound. . Non-distended. Bowel sounds present in all 4 quadrants. EXTREMITIES: Moves all 4 extremities spontaneously. NEUROLOGICAL: Alert and oriented x3. Normal speech.finger to nose testing intact. 5/5 muscle strength. PSYCH: Normal affect, normal mood. SKIN: Warm, dry, normal turgor. No rashes or lesions noted. - HEENT Eyes: Normal Conjunctiva: Normal Cornea: Normal. No: Corneal abrasion, Flourescein stain uptake Extraocular movements intact: Yes Eyelashes: Normal Pupils: PERRL Nerve palsy: No Visual champion normal: Yes Course - Re-evaluation Re-evalutation: 07/19/18 18:04 CBC unremarkable, coags normal, CMP unremarkable, CT scan of the head unremarkable. Patient's presentation is actually more consistent with Vargas's palsy than with stroke. Patient has no peripheral deficits. Patient did have complete workup as she had been having intermittent weakness of her bilateral arms and bilateral legs with cramping. I want to make sure that there were no electrolyte abnormalities. This was all normal. 07/19/18 18:05 Patient will be started on steroids and antivirals. Discharged home. - Vital Signs Vital signs: Temp Pulse Resp BP Pulse Ox 87 22 H 135/85 H 99 07/19/18 13:44 07/19/18 18:00 07/19/18 18:23 07/19/18 18:00 - Laboratory Result Diagrams: 07/19/18 14:50 07/19/18 15:30 Laboratory results interpreted by me: 07/19/18 14:50 Hgb 16.0 H RDW 14.7 H Discharge - Discharge Clinical Impression: Vargas's palsy Condition: Stable Disposition: HOME, SELF-CARE Instructions: Vargas's Palsy ([facility]) Prescriptions: Acyclovir [Acyclovir 400 mg Tablet] 400 mg PO 5XD #50 tablet Prednisone [Deltasone 20 mg Tablet] 20 mg PO DAILY #5 tablet I personally performed the services described in the documentation, reviewed and edited the documentation which was dictated to the scribe in my presence, and it accurately records my words and actions.
[2018-07-20 10:40] VITALS: BP 141/72
== END 2018-07-19 18:23 | disposition home or self-care (01) ==
LOC: ER 12:54
DX: G51.0 Bell's palsy (principal); R20.0 Anesthesia of skin; H53.8 Other visual disturbances; F17.200 Nicotine dependence, unspecified, uncomplicated; I10 Essential (primary) hypertension; Z98.51 Tubal ligation status
CPT/HCPCS: 93005; 99284; 36415; 85025; 85610; 80053; 70450; 93010; J3490

== ENCOUNTER 2018-10-17 22:45 | Inpatient (IN) | payer SELFPAY ==
[2018-10-17 23:43] LABS: ABSOLUTE BASOPHILS # (AUTO) 0.1 10^3/uL (0.0-0.2); ABSOLUTE EOSINOPHILS # (AUTO) 0.2 10^3/uL (0.0-0.6); ABSOLUTE LYMPHOCYTES (AUTO) 2.6 10^3/uL (0.5-4.7); ABSOLUTE MONOCYTES (AUTO) 0.5 10^3/uL (0.1-1.4); ABSOLUTE NEUT (AUTO) 4.3 10^3/uL (1.7-8.2); BASOPHILS % (AUTO) 0.8 % (0-2); EOSINOPHILS % (AUTO) 2.3 % (0-6); HEMOGLOBIN 15.3 g/dL (12.0-15.5); LYMPHOCYTES % (AUTO) 33.9 % (13-45); MEAN CORPUSCULAR HEMOGLOBIN 30.9 pg (27.0-33.4); MEAN CORPUSCULAR VOLUME 91 fl (80-97); MONOCYTES % (AUTO) 6.6 % (3-13); PLATELET COUNT 309 10^3/uL (150-450); RED BLOOD COUNT 4.95 10^6/uL (3.72-5.28); RED CELL DISTRIBUTION WIDTH 14.8 % (11.5-14.0); SEGMENTED NEUTROPHILS % (AUTO) 56.4 % (42-78); TOTAL CELLS COUNTED % (AUTO) 100 %; WHITE BLOOD COUNT 7.6 10^3/uL (4.0-10.5)
[2018-10-17 23:52] LABS: ALANINE AMINOTRANSFERASE 15 U/L (9-52); ALKALINE PHOSPHATASE 80 U/L (38-126); ANION GAP 7 (5-19); ASPARTATE AMINO TRANSFERASE 20 U/L (14-36); BILIRUBIN,DIRECT 0.4 mg/dL (0.0-0.4); BILIRUBIN,TOTAL 0.5 mg/dL (0.2-1.3); BLOOD UREA NITROGEN 14 mg/dL (7-20); CALCIUM 9.6 mg/dL (8.4-10.2); CARBON DIOXIDE 26 mmol/L (22-30); CHLORIDE 107 mmol/L (98-107); GLUCOSE 146 mg/dL (75-110); SODIUM 140.2 mmol/L (137-145)
--- NOTE | 2018-10-17 23:56 | ER Document Report ---
ED General - General Chief Complaint: Chest Pressure Stated Complaint: CHEST PRESSURE Notes: Patient is a 48-year-old female presents with complaint of sudden onset of chest pain at 10 PM that started in the substernal region rating to left shoulder and down left arm up into the left neck. She was diaphoretic. She did feel short of breath. Her ex- really gave her 4 baby aspirin. They called the ambulance. When paramedics arrived they gave her nitro which immediately relieved her pain. She has not had any recurrence of pain since. She does have a history of hypertension and does take lisinopril and hydrochlorothiazide for this. She has no other medical problems other than anxiety for which she takes medications. No other complaints at this time. TRAVEL OUTSIDE OF THE [place] IN LAST 30 DAYS: No - Related Data Allergies/Adverse Reactions: No Known Allergies Allergy (Verified 07/11/17 12:01) Past Medical History - Social History Smoking Status: Current Every Day Smoker Chew tobacco use (# tins/day): No Frequency of alcohol use: None Drug Abuse: None Family History: Reviewed & Not Pertinent Patient has suicidal ideation: No Patient has homicidal ideation: No - Past Medical History Cardiac Medical History: Reports: Hx Hypertension Pulmonary Medical History: Reports: Hx Bronchitis, Hx Pneumonia - 1997 Neurological Medical History: Reports: Hx Migraine Renal/ Medical History: Denies: Hx Peritoneal Dialysis Psychiatric Medical History: Reports: Hx Bipolar Disorder, Hx Depression Past Surgical History: Reports: Hx Tubal Ligation - Immunizations Hx Diphtheria, Pertussis, Tetanus Vaccination: No Review of Systems - Review of Systems Notes: My Normal Review Basic REVIEW OF SYSTEMS: CONSTITUTIONAL : Denies fever, chills, or sweats. Denies recent illness. EENT: Denies eye, ear, throat, or mouth pain or symptoms. Denies nasal or sinus congestion. CARDIOVASCULAR: Had chest pain RESPIRATORY: Denies cough, cold, or chest congestion. Shortness of breath in conjunction with chest pain. GASTROINTESTINAL: Denies abdominal pain. Did vomit. MUSCULOSKELETAL: Denies neck or back pain or joint pain or swelling. SKIN: Denies rash or skin lesions. NEUROLOGICAL: Denies altered mental status or loss of consciousness. ALL OTHER SYSTEMS REVIEWED AND NEGATIVE. Physical Exam - Vital signs Vitals: Temp 97.8 F 10/17/18 23:36 - Notes Notes: General Appearance: Well nourished, alert, cooperative, no acute distress, no obvious discomfort. Vitals: reviewed, See vital signs table. Head: no swelling or tenderness to the head Eyes: PERRL, EOMI, Conjuctiva clear Mouth: No decreasd moisture Lungs: No wheezing, No rales, No rhonci, No accessory muscle use, good air exchange bilaterally. Heart: Normal rate, Regular rythm, No murmur, no rub Abdomen: Normal BS, soft, No rigidity, No abdominal tenderness, No guarding, no rebound, no abdominal masses, no organomegaly Extremities: strength 5/5 in all extremities, good pulses in all extremities, no swelling or tenderness in the extremities, no edema. Skin: warm, dry, appropriate color, no rash Neuro: speech clear, oriented x 3, normal affect, responds appropriately to questions. Course - Re-evaluation Re-evalutation: 10/17/18 23:55 I informed charge nurse patient still has not had her EKG performed. Informed her that we need to get this done soon as possible. Patient currently is chest pain-free however she has a concerning story and therefore needs to have her EKG done immediately. They are getting it done now. 10/18/18 00:35 She is EKG does not show concerning findings. Her story is very concerning and that she had diaphoresis with her chest pain and also nausea and shortness of breath. Pain was relieved with nitro and her pain is not since returned. I have not placed Nitropaste on her as she is currently pain-free and her pressure is in the low 100 systolically. Her pain is elevated. I have given a dose Sravani enox. She had aspirin at home. I did speak with her about admission patient is agreeable to this. I did speak with her hospitalist, Dr. Leigh, who agrees to evaluate the patient for admission. - Vital Signs Vital signs: Temp Pulse Resp BP Pulse Ox 97.8 F 10/17/18 23:36 - Laboratory Result Diagrams: 10/17/18 23:10 10/17/18 23:10 Laboratory results interpreted by me: 10/17/18 10/17/18 23:10 23:10 RDW 14.8 H Glucose 146 H - EKG Interpretation by Me Additional EKG results interpreted by me: 10/18/18 00:06 EKG is reviewed and interpreted by me. EKG shows sinus rhythm with a rate of [address] segment elevation or depression. No ischemic T wave inversions. NM interval, QRS duration, QT intervals are within normal range. Old EKG for comparison is from July 19, 2018. Discharge - Discharge Clinical Impression: NSTEMI (non-ST elevated myocardial infarction) Condition: Good Disposition: ADMITTED INPATIENT Admitting Provider: Reese (Hospitalist) Unit Admitted: [facility]
--- NOTE | 2018-10-18 00:05 | RADIOLOGY REPORT (SQ) ---
EXAM DESCRIPTION: XR CHEST 1 VIEW COMPLETED DATE/TME: 10/17/2018 23:33 CLINICAL HISTORY: 48 years, Female, chest pain COMPARISON: 11/29/2013 chest NUMBER OF VIEWS: 1 TECHNIQUE: Portable chest LIMITATIONS: None. FINDINGS: Heart size normal. Osteopenia. Lungs clear. No pneumothorax IMPRESSION: No acute cardiopulmonary process copyright 2010 [employer]- All Rights Reserved
[2018-10-18] MEDS ORDERED: LEVALBUTEROL HCL NEB 1.25 MG/3 ML AMPUL NEB PRN (02:14)
[2018-10-18] MEDS ORDERED: ONDANSETRON HCL INJ/PF 4 MG/2 ML SDV IV PRN (02:14)
[2018-10-18] MEDS ORDERED: GLUCAGON,HUMAN RECOMB 1 MG INJ SUBCUT PRN (02:14)
[2018-10-18] MEDS ORDERED: MAG HYDROX/AL HYDROX/SIMETH SUSP 30 ML UDCUP PO PRN (02:14)
[2018-10-18] MEDS ORDERED: RINGERS SOLUTION,LACTATED 1,000 ML IV PRN (02:14)
[2018-10-18] MEDS ORDERED: DEXTROSE 40% GEL 15 GM TUBE PO PRN ×2 (02:14)
[2018-10-18] MEDS ORDERED: DEXTROSE 50%-WATER 25 GM/50 ML DISP.SYRIN IV PRN ×2 (02:14)
[2018-10-18] MEDS ORDERED: TEMAZEPAM 15 MG CAPSULE PO PRN (02:14)
[2018-10-18] MEDS ORDERED: MAGNESIUM HYDROXIDE SUSP 30 ML UDCUP PO PRN (02:14)
[2018-10-18 03:27] LABS: CHOLESTEROL 240.86 mg/dL (0-200); TRIGLYCERIDES 140 mg/dL (<150)
[2018-10-18 03:38] LABS: DIRECT LDL 152 mg/dL (<100)
[2018-10-18 03:40] LABS: CREATINE KINASE MB 1.92 ng/mL (<4.55)
[2018-10-18 03:43] LABS: APPEARANCE,URINE CLOUDY; BILIRUBIN,URINE NEGATIVE (NEGATIVE); COLOR,URINE YELLOW; GLUCOSE, URINE NEGATIVE (NEGATIVE); KETONES,URINE TRACE mg/dL (NEGATIVE); LEUKOCYTE ESTERASE,URINE LARGE (NEGATIVE); NITRITE,URINE NEGATIVE (NEGATIVE); PROTEIN,URINE NEGATIVE (NEGATIVE); URINE SPECIFIC GRAVITY 1.027; UROBILINOGEN,URINE NEGATIVE mg/dL (<2.0)
[2018-10-18 03:44] LABS: FREE T3 4.56 pg/mL (2.77-5.27); FREE T4 (FREE THYROXINE) 1.09 ng/dL (0.78-2.19); TROPONIN I 0.443 ng/mL
--- NOTE | 2018-10-18 06:09 | PDOC H&P ---
History of Present Illness Admission Date/PCP: 10/18/18 00:52 No local PCP Patient complains of: Chest pain History of Present Illness: ERASTO WALTON is a 48 year old female who presented to the emergency room with acute chest pain. She admits that at shortly before 10 PM she ate a bowl of ce real before going to bed and after lying down for a period of 1 or 2 minutes she began feeling a deep seated pressure-like pain in her mid back that rapidly moved forward through her chest as a severely intense pressure in the mid- sternal anterior chest region, radiating to her left neck and shoulder and down her left arm. Pain was accompanied by nausea, vomiting (x1), dyspnea and diaphoresis. Shortly after the onset of pain she took 4 baby aspirin and called for emergency medical services. When paramedics arrived they gave her nitroglycerin sublingually which relieved her pain after receiving 2 doses. Her pain was present for approximately 25 minutes in total. Her pain has not recurred since the administration of nitroglycerin by the paramedics. She denies prior similar episodes and has not identified any additional aggravating or ameliorating factors for her chest pain. In the emergency room she was found to have an EKG negative for evidence of acute myocardial ischemia or infarction. She was found to have an elevated serum troponin at 0.102 which is in the indeterminate range. She was subsequently admitted to the hospital for further evaluation and treatment. Past Medical History Cardiac Medical History: Reports: Hypertension Denies: Coronary Artery Disease, Myocardial Infarction, Hyperlipidema Pulmonary Medical History: Reports: Bronchitis, Pneumonia - 1997 Denies: Asthma, Chronic Obstructive Pulmonary Disease (COPD), Intubation EENT Medical History: Denies: Cataracts, Ears - Hearing aids Neurological Medical History: Reports: Migraine Denies: Hemorrhagic CVA, Ischemic CVA, Multiple Sclerosis, Seizures Endocrine Medical History: Reports: Obesity Denies: Diabetes Mellitus Type 1, Diabetes Mellitus Type 2, Hyperthyroidism, Hypothyroidism Renal/ Medical History: Denies: Chronic Kidney Disease, Nephrolithiasis Malignancy Medical History: Reports: None GI Medical History: Denies: Cirrhosis, Crohn's Disease, Hepatitis, Ulcerative Colitis Musculoskeltal Medical History: Denies: Arthritis, Gout Skin Medical History: Denies: Eczema, Psoriasis Psychiatric Medical History: Reports: Bipolar Disorder, Depression, General Anxiety Disorder, Tobacco Dependency Denies: Alcohol Dependency, Substance Abuse Traumatic Medical History: Reports: None Hematology: Denies: Anemia, Bleeding Tendencies Infectious Medical History: Reports: None Past Surgical History Past Surgical History: Reports: Tubal Ligation Social History Information Source: Patient Lives with: Spouse/Significant other Smoking Status: Current Every Day Smoker Frequency of Alcohol Use: None Hx Recreational Drug Use: No Drugs: None Hx Prescription Drug Abuse: No - Advance Directive Resuscitation Status: Full Code Surrogate healthcare decision maker:: Sheela Tang Family History Family History: CAD, COPD, DM, Hypertension, Malignancy Parental Family History Reviewed: Yes Children Family History Reviewed: No Sibling(s) Family History Reviewed.: Yes Medication/Allergy Home Medications: Buspirone HCl [Buspar 10 mg Tablet] 10 mg PO DAILY 05/13/18 Citalopram Hydrobromide [Celexa 20 mg Tablet] 20 mg PO DAILY 05/13/18 Clonidine HCl [Clonidine HCl ER] 0.5 mg PO DAILY 05/13/18 Lisinopril/Hydrochlorothiazide [Lisinopril-Hctz 20-25 mg Tab] 1 tbs PO DAILY 05/13/18 Zolpidem Tartrate [Ambien] 10 mg PO QHS 05/13/18 Nitrofurantoin Macrocrystal [Nitrofurantoin] 1,000 mg PO BID #20 capsule 05/14/18 Acyclovir [Acyclovir 400 mg Tablet] 400 mg PO 5XD #50 tablet 07/19/18 Prednisone [Deltasone 20 mg Tablet] 20 mg PO DAILY #5 tablet 07/19/18 Allergies/Adverse Reactions: gabapentin Allergy (Unknown, Verified 10/18/18 04:38) Anaphylaxis Review of Systems Constitutional: ABSENT: chills, fever(s) Eyes: ABSENT: visual disturbances, other - Eye pain Ears: ABSENT: hearing changes, other - Ear pain Nose, Mouth, and Throat: ABSENT: mouth pain, sore throat Cardiovascular: PRESENT: as per HPI, chest pain. ABSENT: dyspnea on exertion, edema, orthropnea, palpitations Respiratory: PRESENT: as per HPI, dyspnea. ABSENT: cough Gastrointestinal: PRESENT: as per HPI, nausea, vomiting. ABSENT: abdominal pain, constipation, diarrhea Genitourinary: ABSENT: dysuria, hematuria Musculoskeletal: PRESENT: as per HPI, back pain. ABSENT: joint swelling, muscle weakness Integumentary: PRESENT: as per HPI, diaphoresis. ABSENT: pruritus, rash Neurological: PRESENT: dizziness - Had been feeling dizzy and lightheaded most of the day prior to the chest pain event that brought her to the hospital. ABSENT: confusion, convulsions, focal weakness, memory loss, syncope Psychiatric: ABSENT: anxiety, depression Endocrine: ABSENT: cold intolerance, heat intolerance Hematologic/Lymphatic: ABSENT: easy bleeding, easy bruising Physical Exam Vital Signs: Temp Pulse Resp BP Pulse Ox 97.8 F 10/17/18 23:36 Intake & Output 10/16/18 10/17/18 10/18/18 23:59 23:59 23:59 Weight 89.811 kg General appearance: PRESENT: no acute distress, cooperative, obese Head exam: PRESENT: atraumatic, normocephalic Eye exam: ABSENT: conjunctival injection, scleral icterus Ear exam: PRESENT: normal external ear exam. ABSENT: bleeding, drainage Mouth exam: PRESENT: dry mucosa, neck supple Neck exam: ABSENT: thyromegaly, tracheal deviation Respiratory exam: PRESENT: clear to auscultation hernán, symmetrical, unlabored Cardiovascular exam: PRESENT: RRR. ABSENT: clicks, gallop, rubs Pulses: PRESENT: normal radial pulses, normal dorsalis pedis pul Vascular exam: PRESENT: normal capillary refill. ABSENT: pallor GI/Abdominal exam: PRESENT: normal bowel sounds, soft Rectal exam: PRESENT: deferred Extremities exam: ABSENT: joint swelling, pedal edema Musculoskeletal exam: PRESENT: full ROM, normal inspection Neurological exam: PRESENT: alert, oriented to person, oriented to place, oriented to time, oriented to situation, CN II-XII grossly intact. ABSENT: motor sensory deficit Psychiatric exam: PRESENT: appropriate affect, normal mood Skin exam: PRESENT: dry, intact, warm. ABSENT: jaundice, rash, urticaria Results Laboratory Results: 10/17/18 23:10 10/17/18 23:10 10/17/18 10/17/18 23:10 23:10 WBC 7.6 RBC 4.95 Hgb 15.3 Hct 45.0 MCV 91 MCH 30.9 MCHC 34.0 RDW 14.8 H Plt Count 309 Seg Neutrophils % 56.4 Lymphocytes % 33.9 Monocytes % 6.6 Eosinophils % 2.3 Basophils % 0.8 Absolute Neutrophils 4.3 Absolute Lymphocytes 2.6 Absolute Monocytes 0.5 Absolute Eosinophils 0.2 Absolute Basophils 0.1 Sodium 140.2 Potassium 4.0 Chloride 107 Carbon Dioxide 26 Anion Gap 7 BUN 14 Creatinine 0.86 Est GFR ( Amer) > 60 Est GFR (Non-Af Amer) > 60 Glucose 146 H Calcium 9.6 Total Bilirubin 0.5 AST 20 ALT 15 Alkaline Phosphatase 80 Total Protein 7.0 Albumin 4.0 10/17/18 23:10 Troponin I 0.102 EKG Comments: EKG shows a normal sinus rhythm with a heart rate of 63 bpm. Impressions: Chest X-Ray 10/17/18 23:33 IMPRESSION: No acute cardiopulmonary process copyright 2010 [employer]- All Rights Reserved Status: Image reviewed by sd - Lungs are clear, cardiac size is normal, bony chest structures are normal in appearance. There is no acute cardiac or pulmonary disease noted on the single view chest film. Assessment and Plan - Diagnosis (1) Chest pain Qualifiers: Chest pain type: unspecified Qualified Code(s): R07.9 - Chest pain, unspecified Is this a current diagnosis for this admission?: Yes Plan: Patient will have serial cardiac enzymes performed as well as serial EKGs. A cardiac stress test will be obtained if her cardiac work-up is negative. Patient will use morphine sulfate 2 to 4 mg IV every 2 hours as needed chest pain on a sliding scale basis. Additionally she will have available sublingual nitroglycerin for use in treating chest pain. (2) Elevated troponin I level Is this a current diagnosis for this admission?: Yes Plan: Patient's serum troponin will be evaluated with serial troponin I levels as well as serial CK and CK-MB levels. Serial EKGs will also be obtained. Patient will undergo a cardiac stress test in the morning if her serum troponin/cardiac enzyme levels do not indicate/demonstrate a non-STEMI. (3) Hypertension Qualifiers: Hypertension type: essential hypertension Qualified Code(s): I10 - Essential (primary) hypertension Is this a current diagnosis for this admission?: Yes Plan: Patient's hypertension will be treated with her usual antihypertensive regimen and her blood pressure be monitored closely throughout her hospital course. Changes in the patient's regiment may be made depending on the results of other studies. (4) Obesity (BMI 30-39.9) Is this a current diagnosis for this admission?: Yes Plan: A dietary consult may be obtained to advise the patient regarding dietary and lifestyle choices that will help to improve her overall health and reduce her overall health risks. (5) Tobacco use disorder, severe, dependence Is this a current diagnosis for this admission?: Yes Plan: Smoking cessation is advised and brief counseling is provided. A nicotine replacement patch is available for the patient's use if desired. - Time Time Spent with patient: 25-34 minutes Smoking Cessation Education: 3 to 10 minutes Medications reviewed and adjusted accordingly: Yes Anticipated discharge: Home - Inpatient Certification Based on my medical assessment, after consideration of the patient's comorbidities, presenting symptoms, or acuity I expect that the services needed warrant INPATIENT care.: No I certify that my determination is in accordance with my understanding of Medicare's requirements for reasonable and necessary INPATIENT services [42 CFR 412.3e].: No Medical Necessity: Significant Comorbidiites Make Outpatient Treatment Too Risky, Need Close Monitoring Due to Risk of Patient Decompensation, Need For Continuous Telemetry Monitoring, Risk of Complication if Not Cared For in Hospital
--- NOTE | 2018-10-18 06:14 | ADVANCED CARE ---
- Diagnosis (1) Chest pain Diagnosis Current: Yes (2) Elevated troponin I level Diagnosis Current: Yes (3) Hypertension Diagnosis Current: Yes (4) Obesity (BMI 30-39.9) Diagnosis Current: Yes (5) Tobacco use disorder, severe, dependence Diagnosis Current: Yes Attendance: The patient and myself Resuscitation Status: Full Code Discussion: The patient I discussed her desires for care should she suffer a cardiac or respiratory arrest during her hospitalization. She is adamant that she would like to have full resuscitation efforts made in such conditions. We further discussed the possibility of creating a living will and I have recommended that she consider getting the appropriate forms and filling them out to make sure that her loved one or medical surrogate is certain of her wishes for what should be done in a variety of situations that may occur when she would be unable to s peak for herself as to what medical treatment she would like to have given or withheld according to the circumstances of the situation. Care Planning Goals: #1 the patient will be continued his full code. #2 patient will consider a living will. Document(s) Completed: Patient's EMR is labeled as full code. Patient will consider adopting a living will. Time Spent: 27 minutes
--- NOTE | 2018-10-18 08:22 | EKG REPORT ---
SEVERITY:- NORMAL ECG - SINUS RHYTHM : Confirmed by: Akhil Mccracken MD 18-Oct-2018 08:22:29
[2018-10-18 08:24] LABS: CREATINE KINASE MB 2.32 ng/mL (<4.55)
[2018-10-18 08:39] LABS: TROPONIN I 0.54 ng/mL
[2018-10-18] MEDS ORDERED: ENOXAPARIN SODIUM INJ 100 MG/1 ML DISP.SYRIN SUBCUT SCH ×3 (10:00)
[2018-10-18] MEDS ORDERED: VERAPAMIL HCL 5 MG, LIDOCAINE HCL/PF 4 ML, NORMAL SALINE 12 ML, NITROGLYCERIN/D5W 0.4 M... IV PRN ×5 (12:00)
--- NOTE | 2018-10-18 12:12 | PDOC PROGRESS REPORT ---
Subjective Progress Note for:: 10/18/18 Subjective:: 48 y.o. F with a PMH HTN, bronchitis, Bipolar Disorder, Depression, General Anxiety Disorder, Tobacco Dependency (1.5-2PPD smoker for 30 yrs). She is admitted to [facility] for chest pain. The patient reports she woke up with severe back pain radiating to her chest. Her pain resolved after receiving 325 mg aspirin and SL Nitro tabs x 2. EKG shows NSR. The patient was found to have elevated Troponin 0.1. It has since trended up 0.1-->0.4-->0.5. The patient continues to deny chest pain. Repeat EKG this morning shows NSR< no infarction or ischemia. The patient is scheduled to receive a catheterization today at [facility] by Dr. Murphy. Confirmed with Nail Polish Brush Machine Feeder that patient will undergo procedure this afternoon. Afterwards, she will be recovered in the ICU overnight. The patient was seen this afternoon on rounds. She is resting comfortably on room air in bed. The patient denies chest pain at this time. Denies shortness of breath, dyspnea on exertion or palpitations. On exam, LCTA. S1S2. No evidence of peripheral edema. Reason For Visit: CHEST PAIN Physical Exam Vital Signs: Temp Pulse Resp BP Pulse Ox 98.6 F 71 18 126/73 H 99 10/18/18 08:00 10/18/18 08:00 10/18/18 08:00 10/18/18 08:00 10/18/18 08:00 Intake & Output 10/17/18 10/18/18 10/19/18 06:59 06:59 06:59 Weight 88.2 kg General appearance: PRESENT: no acute distress, well-developed, well-nourished Head exam: PRESENT: atraumatic, normocephalic Eye exam: PRESENT: conjunctiva pink, EOMI, PERRLA. ABSENT: scleral icterus Ear exam: PRESENT: normal external ear exam Mouth exam: PRESENT: moist, tongue midline Teeth exam: PRESENT: poor dentation Neck exam: ABSENT: carotid bruit, JVD, lymphadenopathy, thyromegaly Respiratory exam: PRESENT: clear to auscultation hernán. ABSENT: rales, rhonchi, wheezes Cardiovascular exam: PRESENT: RRR. ABSENT: diastolic murmur, rubs, systolic murmur Pulses: PRESENT: normal radial pulses, normal dorsalis pedis pul Vascular exam: PRESENT: normal capillary refill GI/Abdominal exam: PRESENT: normal bowel sounds, soft. ABSENT: distended, guarding, mass, organolmegaly, rebound, tenderness Rectal exam: PRESENT: deferred Extremities exam: PRESENT: full ROM. ABSENT: calf tenderness, clubbing, pedal edema Neurological exam: PRESENT: alert, awake, oriented to person, oriented to place, oriented to time, oriented to situation Psychiatric exam: PRESENT: appropriate affect, normal mood Skin exam: PRESENT: dry, intact, warm. ABSENT: cyanosis, rash Results Laboratory Results: 10/17/18 23:10 10/17/18 23:10 10/17/18 10/17/18 10/18/18 23:10 23:10 02:50 WBC 7.6 RBC 4.95 Hgb 15.3 Hct 45.0 MCV 91 MCH 30.9 MCHC 34.0 RDW 14.8 H Plt Count 309 Seg Neutrophils % 56.4 Lymphocytes % 33.9 Monocytes % 6.6 Eosinophils % 2.3 Basophils % 0.8 Absolute Neutrophils 4.3 Absolute Lymphocytes 2.6 Absolute Monocytes 0.5 Absolute Eosinophils 0.2 Absolute Basophils 0.1 Sodium 140.2 Potassium 4.0 Chloride 107 Carbon Dioxide 26 Anion Gap 7 BUN 14 Creatinine 0.86 Est GFR ( Amer) > 60 Est GFR (Non-Af Amer) > 60 Glucose 146 H Calcium 9.6 Total Bilirubin 0.5 AST 20 ALT 15 Alkaline Phosphatase 80 Total Protein 7.0 Albumin 4.0 Triglycerides Cholesterol LDL Cholesterol Direct VLDL Cholesterol HDL Cholesterol TSH 2.00 Free T4 1.09 Free T3 pg/mL 4.56 Urine Color Urine Appearance Urine pH Ur Specific Doran Urine Protein Urine Glucose (UA) Urine Ketones Urine Blood Urine Nitrite Ur Leukocyte Esterase Urine WBC (Auto) 10/18/18 10/18/18 02:50 02:57 WBC RBC Hgb Hct MCV MCH MCHC RDW Plt Count Seg Neutrophils % Lymphocytes % Monocytes % Eosinophils % Basophils % Absolute Neutrophils Absolute Lymphocytes Absolute Monocytes Absolute Eosinophils Absolute Basophils Sodium Potassium Chloride Carbon Dioxide Anion Gap BUN Creatinine Est GFR ( Amer) Est GFR (Non-Af Amer) Glucose Calcium Total Bilirubin AST ALT Alkaline Phosphatase Total Protein Albumin Triglycerides 140 Cholesterol 240.86 H LDL Cholesterol Direct 152 H VLDL Cholesterol 28.0 HDL Cholesterol 62 TSH Free T4 Free T3 pg/mL Urine Color YELLOW Urine Appearance CLOUDY Urine pH 6.0 Ur Specific Doran 1.027 Urine Protein NEGATIVE Urine Glucose (UA) NEGATIVE Urine Ketones TRACE H Urine Blood NEGATIVE Urine Nitrite NEGATIVE Ur Leukocyte Esterase LARGE H Urine WBC (Auto) 147 10/17/18 10/18/18 10/18/18 23:10 02:50 02:50 Creatine Kinase 60 CK-MB (CK-2) 1.92 Troponin I 0.102 0.443 10/18/18 10/18/18 07:26 07:26 Creatine Kinase 56 CK-MB (CK-2) 2.32 Troponin I 0.540 Impressions: Chest X-Ray 10/17/18 23:33 IMPRESSION: No acute cardiopulmonary process copyright 2010 [employer]- All Rights Reserved Status: Imported from PACS Assessment and Plan - Diagnosis (1) Chest pain Qualifiers: Chest pain type: unspecified Qualified Code(s): R07.9 - Chest pain, unspecified Is this a current diagnosis for this admission?: Yes Plan: Resolved (+) NSTEMI - EKG normal, rising troponins Patient is chest pain free Received 325mg ASA and SL Nitro tab x 2 Total chest pain time: 25-30 minutes EKG shows NSR, no infarction or ischemia CXR WNL, no cardiopulmonary pathology Patient denies family history of cardiac disease - possibly mother with CAD but unsure Dr. Murphy, vector control assistant, was consulted Plan for cardiac catheterization this afternoon (2) Elevated troponin I level Is this a current diagnosis for this admission?: Yes Plan: Continues to rise 0.102-->0.44-->0.54 Patient denies chest pain No evidence of ST elevation on EKG Dr. Murphy, vector control assistant, was consulted Plan for cardiac catheterization this afternoon Patient will be recovered in the ICU following the procedure (3) Hypertension Qualifiers: Hypertension type: essential hypertension Qualified Code(s): I10 - Essential (primary) hypertension Is this a current diagnosis for this admission?: Yes Plan: PMH HTN Blood pressure well controlled since admission Currently not taking any antihypertensives Patient admits she has not seen a physician/PCP "in a while" (4) Obesity (BMI 30-39.9) Is this a current diagnosis for this admission?: Yes Plan: Dietary weight management (5) Tobacco use disorder, severe, dependence Is this a current diagnosis for this admission?: Yes Plan: Smokes 1.5-2 PPD Patient endorses 30-year smoking history We will offer nicotine patch - Time Time Spent with patient: 15-24 minutes Medications reviewed and adjusted accordingly: Yes Anticipated discharge: Home Within: within 24 hours, within 48 hours - Inpatient Certification Based on my medical assessment, after consideration of the patient's c omorbidities, presenting symptoms, or acuity I expect that the services needed warrant INPATIENT care.: Yes I certify that my determination is in accordance with my understanding of Medicare's requirements for reasonable and necessary INPATIENT services [42 CFR 412.3e].: Yes Medical Necessity: Need For Continuous Telemetry Monitoring, Need for Surgery - Cardiac catheterization, Risk of Complication if Not Cared For in Hospital
--- NOTE | 2018-10-18 12:55 | EKG REPORT ---
SEVERITY:- NORMAL ECG - SINUS RHYTHM : Confirmed by: Akhil Mccracken MD 18-Oct-2018 12:55:00
[2018-10-18] MEDS ORDERED: NORMAL SALINE 1000 ML 1,000 ML IV PRN (13:17)
[2018-10-18] MEDS: DOCUSATE SODIUM 100 MG CAPSULE PO SCH ×2 (13:30→21:24)
[2018-10-18] MEDS: FAMOTIDINE 20 MG TABLET PO SCH ×2 (13:30→21:32)
[2018-10-18] MEDS ORDERED: FENTANYL CITRATE INJ/PF 100 MCG/2 ML AMPUL ONE ×2 (13:50→15:03)
[2018-10-18] MEDS ORDERED: MIDAZOLAM 2 MG/2 ML INJ ONE ×2 (13:51→15:03)
[2018-10-18] MEDS ORDERED: HEPARIN SOD (PORCINE) 1,000 UNIT/ML 10 ML VIAL ONE (13:51)
[2018-10-18] MEDS ORDERED: LIDOCAINE 1% INJ-PF (10 MG/ML) 30 ML SDV ONE (13:57)
[2018-10-18] MEDS ORDERED: HEPARIN SODIUM,PORCINE/NS/PF 2,000 UNIT/1,000 ML RTUINJ IV ONE (13:58)
[2018-10-18] MEDS ORDERED: DIPHENHYDRAMINE HCL 25 MG CAPSULE PO ONE (14:00)
[2018-10-18] MEDS ORDERED: DIAZEPAM 5 MG TABLET PO ONE (14:00)
[2018-10-18] MEDS ORDERED: TICAGRELOR 90 MG TABLET ONE (14:53)
[2018-10-18] MEDS ORDERED: BIVALIRUDIN INJ 250 MG VIAL IV ONE (14:53)
[2018-10-18] MEDS ORDERED: NITROGLYCERIN/D5W 50 MG/250 ML RTUINJ IV ONE (15:06)
--- NOTE | 2018-10-18 16:13 | Operative Report ---
Operative Report-slab polisher Operative Report: Indication: Acute Coronary Syndrome PROCEDURE NOTES: Left heart catheterization, bilateral selective coronary angiography, left ventricular CINE angiography with PTCA / Durg Eluting stent to Proximal / mid RCA. After informed consent was obtained the patient was brought into the cardiac catheterization lab. Sterile prep and drape of the right wrist was carried out followed by infiltration with 1% Xylocaine. Using the percutaneous Seldinger technique, a 6 [place] Introducer sheath was placed into the right Radial artery. Selective left and right coronary angiography was performed with a 5 [place] Barbeau pre-formed coronary catheter. A 5 [place]e barbeua catheter was subsequently introduced in the artery and advanced to the ascending aorta. The aortic valve was crossed and the left ventricle was entered. Repeated measurements of the left heart pressure were made after injection of the contrast agent as used for left ventricle CINE-ography. ANALYSIS OF THE ANGIOGRAM: Selective CINE angiograms were obtained with the injection of contrast material into the left and right coronary ostium and left ventricular cavity. The left ventricular injection demonstrates no wall motion abnormality. Ejection fraction is 55-60 % . No significant mitral regurgitation is noted. No aortic stenosis of significance by pull back technique. CORONARY ANGIOGRAPHY: Coronary angiography performed in multiple projections revealed the following; LEFT MAIN: Moderate caliber vessel that is autobiographically patent. LEFT CIRCUMFLEX/OBTUSE MARGINAL: Moderate caliber vessel and appears angiographically patent. LEFT ANTERIOR DESCENDING/DIAGONAL: Moderate caliber vessel. It appears angiographically patent. RIGHT CORONARY ARTERY: Moderate caliber vessel with diffuse tandem lesions in proximal and middle portion of 85% followed by 65 %. The distal Right Coronary artery has a 40-50% diffuse non-obstructive plaque. Intervention: Patient was placed on Angiomax bolus and IV gtt per protocol. A 6 Fr. JR4 Guide was utilized to selectively engage the RCA. A [employer] guidewire was fed easily into the distal RCA. Pre-dilation was carried out with a semi-complaint 2.5 x 15 at 12 lucita for 20 seconds. This showed continued high grade plaque but no waisting with use of balloon and TRACY 3 flow. It was decided to stent this region using a [employer] Eluting stent of a 3.0 x 30 mm that was deployed at 16 lucita for 35 seconds. This revealed 0% residual stenosis and TRACY 3 flow. The distal area appeared unchanged even with sequential administration of 50 mcg of IC nitro. The wire was removed and post PCI angiogram appeared unchanged. The guiding catheter was then removed without incident. The Radial sheath was tthen removed and a TR band was used for adequate hemostasis. Patient tolerated procedure well. A total of 57 minutes was spent with supervision of administration of moderate conscious sedation combined with continuous oxygen monitoring and hemodynamic monitoring. Plan: ECASA 81 mg po nightly for life as tolerated. Brilinta 90 mg po bid for 12 months with discount care to be supplied and if any issues with affordability would transition to generic plavix at 75 mg po daily for 12 months, but favor Brilinta over Generic Plavix given presentation as a ACS. Smoking cessation. Risk Factor modification with statin typically at high dose such as Atorvastatin at 40 mg po nightly to get LDL < 70. Cardiac Rehab will be offered. She may follow-up with [facility] license of [facility] in [place] within 4 weeks and if issues with availability could be seen at [place] [facility] as alternative. Case verbally discussed with hospitalist caring for patient today.
[2018-10-18] MEDS ORDERED: NITROGLYCERIN 0.4 MG/TAB 25 TAB/BOTTLE SL PRN (16:57)
[2018-10-18 17:06] LABS: CREATINE KINASE MB 1.44 ng/mL (<4.55)
[2018-10-18 17:11] LABS: TROPONIN I 0.275 ng/mL
[2018-10-18] MEDS ORDERED: TICAGRELOR 90 MG TABLET PO SCH (18:00)
[2018-10-18] MEDS: BUSPIRONE HCL 10 MG TABLET PO SCH (19:49)
[2018-10-18] MEDS: CITALOPRAM HYDROBROMIDE 20 MG TABLET PO SCH (19:50)
[2018-10-18] MEDS: NICOTINE 21 MG/24 HR PATCH.TD24 TD SCH (19:50)
[2018-10-18] MEDS: ATORVASTATIN CALCIUM 40 MG TABLET PO SCH (21:31)
[2018-10-18] MEDS: TICAGRELOR 90 MG TABLET PO SCH (21:31)
[2018-10-19 06:42] LABS: ABSOLUTE BASOPHILS # (AUTO) 0.1 10^3/uL (0.0-0.2); ABSOLUTE EOSINOPHILS # (AUTO) 0.1 10^3/uL (0.0-0.6); ABSOLUTE LYMPHOCYTES (AUTO) 1.9 10^3/uL (0.5-4.7); ABSOLUTE MONOCYTES (AUTO) 0.5 10^3/uL (0.1-1.4); ABSOLUTE NEUT (AUTO) 4.3 10^3/uL (1.7-8.2); BASOPHILS % (AUTO) 0.9 % (0-2); EOSINOPHILS % (AUTO) 1.6 % (0-6); HEMOGLOBIN 14.5 g/dL (12.0-15.5); LYMPHOCYTES % (AUTO) 26.9 % (13-45); MEAN CORPUSCULAR HEMOGLOBIN 31.2 pg (27.0-33.4); MEAN CORPUSCULAR HGB CONC 34.5 g/dL (32.0-36.0); MEAN CORPUSCULAR VOLUME 90 fl (80-97); MONOCYTES % (AUTO) 7.8 % (3-13); PLATELET COUNT 233 10^3/uL (150-450); RED BLOOD COUNT 4.64 10^6/uL (3.72-5.28); RED CELL DISTRIBUTION WIDTH 14.7 % (11.5-14.0); SEGMENTED NEUTROPHILS % (AUTO) 62.8 % (42-78); TOTAL CELLS COUNTED % (AUTO) 100 %; WHITE BLOOD COUNT 6.9 10^3/uL (4.0-10.5)
[2018-10-19 07:10] LABS: ALANINE AMINOTRANSFERASE 21 U/L (9-52); ALBUMIN 3.5 g/dL (3.5-5.0); ALKALINE PHOSPHATASE 75 U/L (38-126); ANION GAP 7 (5-19); ASPARTATE AMINO TRANSFERASE 16 U/L (14-36); BILIRUBIN,DIRECT 0.2 mg/dL (0.0-0.4); BILIRUBIN,TOTAL 0.6 mg/dL (0.2-1.3); BLOOD UREA NITROGEN 16 mg/dL (7-20); CALCIUM 9.5 mg/dL (8.4-10.2); CARBON DIOXIDE 22 mmol/L (22-30); CHLORIDE 112 mmol/L (98-107); CHOLESTEROL 238.72 mg/dL (0-200); GLUCOSE 93 mg/dL (75-110); POTASSIUM 3.9 mmol/L (3.6-5.0); SODIUM 140.8 mmol/L (137-145); TOTAL PROTEIN 6.2 g/dL (6.3-8.2); TRIGLYCERIDES 116 mg/dL (<150)
[2018-10-19 07:20] LABS: DIRECT LDL 144 mg/dL (<100)
[2018-10-19] MEDS: CITALOPRAM HYDROBROMIDE 20 MG TABLET PO SCH (09:55)
[2018-10-19] MEDS: TICAGRELOR 90 MG TABLET PO SCH ×2 (09:55→21:17)
[2018-10-19] MEDS: BUSPIRONE HCL 10 MG TABLET PO SCH (09:55)
[2018-10-19] MEDS: DOCUSATE SODIUM 100 MG CAPSULE PO SCH ×2 (09:56→18:17)
[2018-10-19] MEDS: NICOTINE 21 MG/24 HR PATCH.TD24 TD SCH (09:56)
[2018-10-19] MEDS: ASPIRIN 81 MG TABLET, ENT COATED PO SCH (09:56)
[2018-10-19] MEDS: FAMOTIDINE 20 MG TABLET PO SCH ×2 (09:57→21:17)
[2018-10-19] MEDS ORDERED: ASPIRIN 81 MG TABLET, CHEWABLE PO SCH (10:00)
--- NOTE | 2018-10-19 16:05 | PDOC PROGRESS REPORT ---
Subjective Progress Note for:: 10/19/18 Subjective:: 48 y.o. F with a PMH HTN, bronchitis, Bipolar Disorder, Depression, General Anxiety Disorder, Tobacco Dependency (1.5-2PPD smoker for 30 yrs). She is admitted to [facility] for an NSTEMI. The patient reports she woke up with severe back pain radiating to her chest. The patient was found to have elevated Troponin 0.1 that trended up 0.1-->0.4-->0.5. The patient was evaluated by interventional cardiology and deemed to be a good candidate for catheterization. 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 Murphy. Confirmed with Senior Salesforce Developer that patient will undergo procedure this afternoon. Afterwards, she will be recovered in the ICU overnight. The patient was seen this afternoon on rounds. She is resting comfortably on r oom air in bed. The patient denies chest pain at this time. Denies shortness of breath, dyspnea on exertion or palpitations. On exam, LCTA. S1S2. No evidence of peripheral edema. Reason For Visit: CHEST PAIN Physical Exam Vital Signs: Temp Pulse Resp BP Pulse Ox 98.8 F 84 18 152/81 H 99 10/19/18 08:00 10/19/18 08:00 10/19/18 08:00 10/19/18 08:00 10/19/18 08:00 Intake & Output 10/18/18 10/19/18 10/20/18 06:59 06:59 06:59 Intake Total 2615 Output Total 350 Balance 2265 Weight 88.2 kg 90.9 kg General appearance: PRESENT: no acute distress, well-developed, well-nourished Head exam: PRESENT: atraumatic, normocephalic Eye exam: PRESENT: conjunctiva pink, EOMI, PERRLA. ABSENT: scleral icterus Ear exam: PRESENT: normal external ear exam Mouth exam: PRESENT: moist, tongue midline Neck exam: ABSENT: carotid bruit, JVD, lymphadenopathy, thyromegaly Respiratory exam: PRESENT: clear to auscultation hernán. ABSENT: rales, rhonchi, wheezes Cardiovascular exam: PRESENT: RRR. ABSENT: diastolic murmur, rubs, systolic murmur Pulses: PRESENT: normal dorsalis pedis pul Vascular exam: PRESENT: normal capillary refill GI/Abdominal exam: PRESENT: normal bowel sounds, soft. ABSENT: distended, guarding, mass, organolmegaly, rebound, tenderness Rectal exam: PRESENT: deferred Extremities exam: PRESENT: full ROM. ABSENT: calf tenderness, clubbing, pedal edema Neurological exam: PRESENT: alert, awake, oriented to person, oriented to place, oriented to time, oriented to situation Psychiatric exam: PRESENT: appropriate affect, normal mood Skin exam: PRESENT: dry, intact, warm. ABSENT: cyanosis, rash Results Laboratory Results: 10/19/18 06:18 10/19/18 06:18 10/19/18 10/19/18 06:18 06:18 WBC 6.9 RBC 4.64 Hgb 14.5 Hct 42.0 MCV 90 MCH 31.2 MCHC 34.5 RDW 14.7 H Plt Count 233 Seg Neutrophils % 62.8 Lymphocytes % 26.9 Monocytes % 7.8 Eosinophils % 1.6 Basophils % 0.9 Absolute Neutrophils 4.3 Absolute Lymphocytes 1.9 Absolute Monocytes 0.5 Absolute Eosinophils 0.1 Absolute Basophils 0.1 Sodium 140.8 Potassium 3.9 Chloride 112 H Carbon Dioxide 22 Anion Gap 7 BUN 16 Creatinine 0.80 Est GFR ( Amer) > 60 Est GFR (Non-Af Amer) > 60 Glucose 93 Calcium 9.5 Magnesium 1.9 Total Bilirubin 0.6 AST 16 ALT 21 Alkaline Phosphatase 75 Total Protein 6.2 L Albumin 3.5 Triglycerides 116 Cholesterol 238.72 H LDL Cholesterol Direct 144 H VLDL Cholesterol 23.0 HDL Cholesterol 62 10/17/18 10/18/18 10/18/18 23:10 02:50 02:50 Creatine Kinase 60 CK-MB (CK-2) 1.92 Troponin I 0.102 0.443 10/18/18 10/18/18 10/18/18 07:26 07:26 16:24 Creatine Kinase 56 43 CK-MB (CK-2) 2.32 Troponin I 0.540 10/18/18 10/19/18 16:24 06:18 Creatine Kinase CK-MB (CK-2) 1.44 Troponin I 0.275 0.428 Impressions: Chest X-Ray 10/17/18 23:33 IMPRESSION: No acute cardiopulmonary process copyright 2011 [employer]- All Rights Reserved Status: Imported from PACS Assessment and Plan - Diagnosis (1) Chest pain Qualifiers: Chest pain type: unspecified Qualified Code(s): R07.9 - Chest pain, unspecified Is this a current diagnosis for this admission?: Yes Plan: Resolved (+) NSTEMI - EKG normal, rising troponins EKG shows NSR, no infarction or ischemia Patient is chest pain free CXR WNL, no cardiopulmonary pathology Patient denies family history of cardiac disease - possibly mother with CAD but unsure Dr. Murphy, pulling unit operator, was consulted Cardiac catheterization yesterday 85% occlusion of RCA - stent x 1 Started on Brillinta and atorvastatin and aspirin - will need to continue at discharge If she remains chest pain free, will d/c home tomorrow (2) Elevated troponin I level Is this a current diagnosis for this admission?: Yes Plan: Patient denies chest pain No evidence of ST elevation on EKG Dr. Murphy, pulling unit operator, was consulted Cardiac catheterization done yesterday remaining plan above (3) Hypertension Qualifiers: Hypertension type: essential hypertension Qualified Code(s): I10 - Essential (primary) hypertension Is this a current diagnosis for this admission?: Yes Plan: [facility] HTN Blood pressure well controlled since admission Currently not taking any antihypertensives Patient admits she has not seen a physician/PCP "in a while" (4) Obesity (BMI 30-39.9) Is this a current diagnosis for this admission?: Yes Plan: Dietary weight management (5) Tobacco use disorder, severe, dependence Is this a current diagnosis for this admission?: Yes Plan: Smokes 1.5-2 PPD Patient endorses 30-year smoking history We will offer nicotine patch - Time Time Spent with patient: 15-24 minutes Medications reviewed and adjusted accordingly: Yes Anticipated discharge: Home Within: within 24 hours - Inpatient Certification Based on my medical assessment, after consideration of the patient's comorbidities, presenting symptoms, or acuity I expect that the services needed warrant INPATIENT care.: Yes I certify that my determination is in accordance with my understanding of Medicare's requirements for reasonable and necessary INPATIENT services [42 CFR 412.3e].: Yes Medical Necessity: Need For Continuous Telemetry Monitoring, Risk of Complication if Not Cared For in Hospital
--- NOTE | 2018-10-19 18:39 | EKG REPORT ---
SEVERITY:- NORMAL ECG - SINUS RHYTHM : Confirmed by: Akhil Mccracken MD 19-Oct-2018 18:39:22
[2018-10-19] MEDS: ATORVASTATIN CALCIUM 40 MG TABLET PO SCH (21:17)
[2018-10-20] MEDS: BUSPIRONE HCL 10 MG TABLET PO SCH (09:50)
[2018-10-20] MEDS: CITALOPRAM HYDROBROMIDE 20 MG TABLET PO SCH (09:50)
[2018-10-20] MEDS: TICAGRELOR 90 MG TABLET PO SCH (09:50)
[2018-10-20] MEDS: FAMOTIDINE 20 MG TABLET PO SCH (09:51)
[2018-10-20] MEDS: ASPIRIN 81 MG TABLET, ENT COATED PO SCH (09:51)
[2018-10-20] MEDS: DOCUSATE SODIUM 100 MG CAPSULE PO SCH (09:51)
[2018-10-20] MEDS: NICOTINE 21 MG/24 HR PATCH.TD24 TD SCH (09:51)
[2018-10-20 10:00] LABS: HEMATOCRIT 41.8 % (36.0-47.0); HEMOGLOBIN 14.2 g/dL (12.0-15.5); MEAN CORPUSCULAR HEMOGLOBIN 30.8 pg (27.0-33.4); MEAN CORPUSCULAR VOLUME 91 fl (80-97); PLATELET COUNT 229 10^3/uL (150-450); RED BLOOD COUNT 4.61 10^6/uL (3.72-5.28); RED CELL DISTRIBUTION WIDTH 14.7 % (11.5-14.0); WHITE BLOOD COUNT 6.7 10^3/uL (4.0-10.5)
[2018-10-20 10:18] LABS: ALANINE AMINOTRANSFERASE 13 U/L (9-52); ALBUMIN 3.6 g/dL (3.5-5.0); ALKALINE PHOSPHATASE 73 U/L (38-126); ANION GAP 6 (5-19); ASPARTATE AMINO TRANSFERASE 17 U/L (14-36); BILIRUBIN,DIRECT 0.2 mg/dL (0.0-0.4); BILIRUBIN,TOTAL 0.5 mg/dL (0.2-1.3); BLOOD UREA NITROGEN 13 mg/dL (7-20); CALCIUM 9.4 mg/dL (8.4-10.2); CARBON DIOXIDE 25 mmol/L (22-30); CHLORIDE 110 mmol/L (98-107); CREATINE KINASE 39 U/L (30-135); GLUCOSE 111 mg/dL (75-110); POTASSIUM 4.5 mmol/L (3.6-5.0); SODIUM 140.5 mmol/L (137-145); TOTAL PROTEIN 6.2 g/dL (6.3-8.2)
[2018-10-20 10:29] LABS: CREATINE KINASE MB 0.5 ng/mL (<4.55)
[2018-10-20 10:34] LABS: TROPONIN I 0.163 ng/mL
[2018-10-20 15:37] VITALS: BP 147/94
--- NOTE | 2018-10-25 08:13 | PDOC DISCHARGE SUMMARY ---
General - Admit/Disc Date/PCP Admission Date/Primary Care Provider: 10/18/18 02:14 Discharge Date: 10/20/18 - Discharge Diagnosis (1) Chest pain Is this a current diagnosis for this admission?: Yes (2) Elevated troponin I level Is this a current diagnosis for this admission?: Yes (3) Hypertension Is this a current diagnosis for this admission?: Yes (4) Obesity (BMI 30-39.9) Is this a current diagnosis for this admission?: Yes (5) Tobacco use disorder, severe, dependence Is this a current diagnosis for this admission?: Yes - Additional Information Resuscitation Status: Full Code Discharge Diet: Cardiac Discharge Activity: Activity As Tolerated Prescriptions: Aspirin [Ecotrin 81 mg EC Tablet] 81 mg PO DAILY #30 tabec Atorvastatin Calcium [Lipitor 40 mg Tablet] 40 mg PO QHS #30 tablet Clopidogrel Bisulfate [Plavix 75 mg Tablet] 75 mg PO DAILY #30 tablet Nicotine [Nicoderm 21 mg/24 Hr Transderm Patch] 1 each TD DAILY #30 patch.td24 Nitroglycerin [Nitrostat 0.4 mg (1/150 Gr) Tabs 25/Bottle] 1 tab SL Q5MP PRN #1 bottle PRN Reason: Home Medications: Buspirone HCl [Buspar 5 mg Tablet] 5 mg PO BID 10/18/18 Citalopram Hydrobromide [Celexa 20 mg Tablet] 20 mg PO DAILY 10/18/18 Clonazepam [Klonopin] 0.5 mg PO BID 10/18/18 Ibuprofen [Motrin 800 mg Tablet] 800 mg PO TIDP PRN 10/18/18 Olanzapine [Zyprexa 5 mg Tablet] 5 mg PO BID 10/18/18 Aspirin [Ecotrin 81 mg EC Tablet] 81 mg PO DAILY #30 tabec 10/20/18 Atorvastatin Calcium [Lipitor 40 mg Tablet] 40 mg PO QHS #30 tablet 10/20/18 Buspirone HCl [Buspar 10 mg Tablet] 10 mg PO DAILY tablet 10/20/18 Citalopram Hydrobromide [Celexa 20 mg Tablet] 20 mg PO DAILY tablet 10/20/18 Clopidogrel Bisulfate [Plavix 75 mg Tablet] 75 mg PO DAILY #30 tablet 10/20/18 Nicotine [Nicoderm 21 mg/24 Hr Transderm Patch] 1 each TD DAILY #30 patch.td24 10/20/18 Nitroglycerin [Nitrostat 0.4 mg (1/150 Gr) Tabs 25/Bottle] 1 tab SL Q5MP PRN #1 bottle 10/20/18 History of Present Illness History of Present Illness: ERASTO WALTON is a 48 year old female who presented to the emergency room with acute chest pain. She admits that at shortly before 10 PM she ate a bowl of cereal before going to bed and after lying down for a period of 1 or 2 minutes she began feeling a deep seated pressure-like pain in her mid back that rapidly moved forward through her chest as a severely intense pressure in the mid- sternal anterior chest region, radiating to her left neck and shoulder and down her left arm. Pain was accompanied by nausea, vomiting (x1), dyspnea and diaphoresis. Shortly after the onset of pain she took 4 baby aspirin and called for emergency medical services. When paramedics arrived they gave her nitroglycerin sublingually which relieved her pain after receiving 2 doses. Her pain was present for approximately 25 minutes in total. Her pain has not recurred since the administration of nitroglycerin by the paramedics. She denies prior similar episodes and has not identified any additional aggravating or ameliorating factors for her chest pain. In the emergency room she was found to have an EKG negative for evidence of acute myocardial ischemia or infarction. She was found to have an elevated serum troponin at 0.102 which is in the indeterminate range. She was subsequently admitted to the hospital for further evaluation and treatment. Hospital Course Hospital Course: 48 y.o. F with a H HTN, bronchitis, Bipolar Disorder, Depression, General Anxiety Disorder, Tobacco Dependency (1.5-2PPD smoker for 30 yrs). She is admitted to [facility] for an NSTEMI. The patient reports she woke up with severe back pain radiating to her chest. The patient was found to have elevated Troponin 0.1 that trended up 0.1-->0.4-->0.5. The patient was evaluated by interventional cardiology and deemed to be a good candidate for catheterization. 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 Murphy (interventional cardiology). The patient was monitored for 24 hours following her procedure. She did not have recurrence of chest pain. She was discharged home on guidelines directed aspirin, statin, and plavix. The patient was strongly urged to stop smoking, a great deal of time was spent counseling the patient on smoking cessation. She was offered a prescription for a nicotine patch. Physical Exam Vital Signs: Temp Pulse Resp BP Pulse Ox 98.2 F 82 16 147/94 H 98 10/20/18 15:00 10/20/18 15:00 10/20/18 15:00 10/20/18 15:00 10/20/18 15:00 General appearance: PRESENT: no acute distress, well-developed, well-nourished Head exam: PRESENT: atraumatic, normocephalic Eye exam: PRESENT: conjunctiva pink, EOMI, PERRLA. ABSENT: scleral icterus Ear exam: PRESENT: normal external ear exam Mouth exam: PRESENT: moist, tongue midline Neck exam: ABSENT: carotid bruit, JVD, lymphadenopathy, thyromegaly Respiratory exam: PRESENT: clear to auscultation hernán. ABSENT: rales, rhonchi, wheezes Cardiovascular exam: PRESENT: RRR. ABSENT: diastolic murmur, rubs, systolic murmur Pulses: PRESENT: normal dorsalis pedis pul Vascular exam: PRESENT: normal capillary refill GI/Abdominal exam: PRESENT: normal bowel sounds, soft. ABSENT: distended, guarding, mass, organolmegaly, rebound, tenderness Rectal exam: PRESENT: deferred Extremities exam: PRESENT: full ROM. ABSENT: calf tenderness, clubbing, pedal edema Neurological exam: PRESENT: alert, awake, oriented to person, oriented to place, oriented to time, oriented to situation, CN II-XII grossly intact. ABSENT: motor sensory deficit Psychiatric exam: PRESENT: appropriate affect, normal mood. ABSENT: homicidal ideation, suicidal ideation Skin exam: PRESENT: dry, intact, warm. ABSENT: cyanosis, rash Results Laboratory Results: 10/20/18 09:17 10/20/18 09:17 10/17/18 10/18/18 10/18/18 23:10 02:50 02:50 Creatine Kinase 60 CK-MB (CK-2) 1.92 Troponin I 0.102 0.443 10/18/18 10/18/18 10/18/18 07:26 07:26 16:24 Creatine Kinase 56 43 CK-MB (CK-2) 2.32 Troponin I 0.540 10/18/18 10/19/18 10/20/18 16:24 06:18 09:17 Creatine Kinase 39 CK-MB (CK-2) 1.44 Troponin I 0.275 0.428 10/20/18 09:17 Creatine Kinase CK-MB (CK-2) 0.50 Troponin I 0.163 Impressions: Chest X-Ray 10/17/18 23:33 IMPRESSION: No acute cardiopulmonary process copyright 2011 [employer]- All Rights Reserved Status: Imported from PACS Qualifiers - * PATIENT BEING DISCHARGED WITH ANY OF THE FOLLOWING DIAGNOSIS: OR OR Pt being discharged on Aspirin therapy?: Yes OR Pt being discharged on Statins?: Yes OR Pt discharged ACEI/ARBS?: Yes Reason(s) for not prescribing ACEI/ARBS:: Not indicated - not hypertensive Acute Heart Failure - Is this a Heart Failure Patient?: No Plan Time Spent: Greater than 30 Minutes
== END 2018-10-20 15:15 | disposition home or self-care (01) | DRG 247 ==
LOC: ER 22:45 → EH 10-18 00:52 → INTOOBSV 10-18 00:52 → OBSVTOIN 10-18 02:14 → 4S 10-18 04:15
PROVIDERS: ADMIT Emergency Medicine; ATTEND Emergency Medicine
PROC: 027034Z Dilation of Coronary Artery, One Artery with Drug-eluting Intraluminal Device, Percutaneous Approach (ICD-10-PCS; principal; 2018-10-18)
PROC: 4A023N7 Measurement of Cardiac Sampling and Pressure, Left Heart, Percutaneous Approach (ICD-10-PCS; 2018-10-18)
PROC: B2110ZZ Fluoroscopy of Multiple Coronary Arteries using High Osmolar Contrast (ICD-10-PCS; 2018-10-18)
PROC: B2150ZZ Fluoroscopy of Left Heart using High Osmolar Contrast (ICD-10-PCS; 2018-10-18)
DX: I21.4 Non-ST elevation (NSTEMI) myocardial infarction (principal); I10 Essential (primary) hypertension; E66.9 Obesity, unspecified; F41.1 Generalized anxiety disorder; F31.9 Bipolar disorder, unspecified; I16.0 Hypertensive urgency; Z68.39 Body mass index [BMI] 39.0-39.9, adult; F17.210 Nicotine dependence, cigarettes, uncomplicated; Z82.49 Family history of ischemic heart disease and other diseases of the circulatory system; Z83.6 Family history of other diseases of the respiratory system; Z83.3 Family history of diabetes mellitus; Z80.9 Family history of malignant neoplasm, unspecified; Z79.899 Other long term (current) drug therapy; Z88.8 Allergy status to other drugs, medicaments and biological substances; Z79.02 Long term (current) use of antithrombotics/antiplatelets; Z79.82 Long term (current) use of aspirin
CPT/HCPCS: 36415; 71045; 80048; 80053; 80061; 80076; 81001; 82550; 82553; 83036; 83735; 84100; 84439; 84443; 84481; 84484; 85025; 85027; 92928; 93005; 93010; 93458; 99285; C1725; C1769; C1874; C1887; J0583; J1644; J2250; J3010; J3490; J7030; J7120

== ENCOUNTER 2018-10-25 10:03 | Emergency (ER) | payer SELFPAY ==
--- NOTE | 2018-10-25 10:55 | ER Document Report ---
ED Medical Screen (RME) - General Chief Complaint: Shortness Of Breath Stated Complaint: SHORTNESS OF BREATH Time Seen by Provider: 10/25/18 10:51 Mode of Arrival: Ambulatory Information source: Patient Notes: Patient presents emergency department with reports that she recently had a AK and had a stent placement here at [facility]. She reports she has had profuse sweating since that time. She also reports mild shortness of breath. Denies chest pain. Denies all other symptoms such as fever vomiting diarrhea. [facility] Patient reports that this profuse sweating will happen at random times. But it seems like it is happening all the time. I have greeted and performed a rapid initial assessment of this patient. A comprehensive ED assessment and evaluation of the patient, analysis of test results and completion of the medical decision making process will be conducted by additional ED providers. Dictation of this chart was performed using voice recognition software; therefore, there may be some unintended grammatical errors. TRAVEL OUTSIDE OF THE [place] IN LAST 30 DAYS: No - Related Data Allergies/Adverse Reactions: gabapentin Allergy (Unknown, Verified 10/25/18 10:06) Anaphylaxis Past Medical History - Past Medical History Cardiac Medical History: Reports: Hx Hypertension Denies: Hx Congestive Heart Failure, Hx Coronary Artery Disease, Hx Heart Attack, Hx Hypercholesterolemia Pulmonary Medical History: Reports: Hx Bronchitis, Hx Pneumonia - 1997 Denies: Hx Asthma, Hx COPD, Hx Intubation, Hx Tuberculosis Neurological Medical History: Reports: Hx Migraine. Denies: Hx Seizures Endocrine Medical History: Denies: Hx Diabetes Mellitus Type 1, Hx Diabetes Mellitus Type 2, Hx Hyperthyroidism, Hx Hypothyroidism Renal/ Medical History: Denies: Hx End Stage Renal Disease, Hx Kidney Stones, Hx Peritoneal Dialysis GI Medical History: Reports: Hx Gastroesophageal Reflux Disease. Denies: Hx Cirrhosis, Hx Crohn's Disease, Hx Hepatitis, Hx Ulcer, Hx Ulcerative Colitis Musculoskeltal Medical History: Denies Hx Arthritis, Denies Hx Gout, Denies Hx Multiple Sclerosis Skin Medical History: Denies Hx Eczema, Denies Hx Psoriasis Psychiatric Medical History: Reports: Hx Bipolar Disorder, Hx Depression Denies: Hx Schizophrenia Infectious Medical History: Denies: Hx Hepatitis Past Surgical History: Reports: Hx Tubal Ligation - Immunizations Hx Diphtheria, Pertussis, Tetanus Vaccination: No Physical Exam - Vital signs Vitals: Temp Pulse Resp BP Pulse Ox 98.0 F 73 16 143/100 H 94 10/25/18 10:10 10/25/18 10:10 10/25/18 10:10 10/25/18 10:10 10/25/18 10:10 Course - Vital Signs Vital signs: Temp Pulse Resp BP Pulse Ox 98.0 F 73 16 143/100 H 94 10/25/18 10:10 10/25/18 10:10 10/25/18 10:10 10/25/18 10:10 10/25/18 10:10
[2018-10-25 11:28] LABS: ABSOLUTE BASOPHILS # (AUTO) 0.1 10^3/uL (0.0-0.2); ABSOLUTE EOSINOPHILS # (AUTO) 0.1 10^3/uL (0.0-0.6); ABSOLUTE LYMPHOCYTES (AUTO) 2.1 10^3/uL (0.5-4.7); ABSOLUTE MONOCYTES (AUTO) 0.5 10^3/uL (0.1-1.4); ABSOLUTE NEUT (AUTO) 4.6 10^3/uL (1.7-8.2); BASOPHILS % (AUTO) 0.8 % (0-2); EOSINOPHILS % (AUTO) 1.8 % (0-6); HEMOGLOBIN 15.6 g/dL (12.0-15.5); LYMPHOCYTES % (AUTO) 27.9 % (13-45); MEAN CORPUSCULAR HEMOGLOBIN 31.3 pg (27.0-33.4); MEAN CORPUSCULAR HGB CONC 34.6 g/dL (32.0-36.0); MEAN CORPUSCULAR VOLUME 90 fl (80-97); MONOCYTES % (AUTO) 7.2 % (3-13); PLATELET COUNT 293 10^3/uL (150-450); RED BLOOD COUNT 4.98 10^6/uL (3.72-5.28); RED CELL DISTRIBUTION WIDTH 14.3 % (11.5-14.0); SEGMENTED NEUTROPHILS % (AUTO) 62.3 % (42-78); TOTAL CELLS COUNTED % (AUTO) 100 %; WHITE BLOOD COUNT 7.4 10^3/uL (4.0-10.5)
[2018-10-25 11:30] LABS: INTERNATIONAL RATION (INR) 0.87; PROTHROMBIN TIME 12.3 SEC (11.4-15.4)
[2018-10-25 11:31] LABS: PARTIAL THROMBOPLASTIN TIME 37.9 SEC (23.5-35.8)
[2018-10-25 11:47] LABS: ALANINE AMINOTRANSFERASE 25 U/L (9-52); ALBUMIN 4.3 g/dL (3.5-5.0); ALKALINE PHOSPHATASE 84 U/L (38-126); ANION GAP 7 (5-19); ASPARTATE AMINO TRANSFERASE 18 U/L (14-36); BILIRUBIN,DIRECT 0.2 mg/dL (0.0-0.4); BILIRUBIN,TOTAL 0.6 mg/dL (0.2-1.3); BLOOD UREA NITROGEN 12 mg/dL (7-20); CALCIUM 9.7 mg/dL (8.4-10.2); CARBON DIOXIDE 25 mmol/L (22-30); CHLORIDE 107 mmol/L (98-107); CREATINE KINASE 48 U/L (30-135); GLUCOSE 98 mg/dL (75-110); POTASSIUM 4.6 mmol/L (3.6-5.0); SODIUM 138.8 mmol/L (137-145); TOTAL PROTEIN 7.2 g/dL (6.3-8.2)
--- NOTE | 2018-10-25 12:03 | ER Document Report ---
ED General - General Chief Complaint: Shortness Of Breath Stated Complaint: SHORTNESS OF BREATH Time Seen by Provider: 10/25/18 10:51 Mode of Arrival: Ambulatory Notes: 40-year-old lady presents with diaphoresis. She was here and discharged a couple days ago after having an an STEMI and had a cath with a stent to the RCA. She says that during hospitalization she developed intermittent diaphoresis and was told it was not a big deal. It is persisted over the last several days comes for minutes at a time even when she sitting in front of an air conditioner and is now resolved. The last time it occurred was about an hour ago. Does not come with chest pain. She is had some intermittent shortness of breath which did not line up with a diaphoresis. She is taking all her medicines but does continue to smoke. TRAVEL OUTSIDE OF THE [place] IN LAST 30 DAYS: No - Related Data Allergies/Adverse Reactions: gabapentin Allergy (Unknown, Verified 10/25/18 10:06) Anaphylaxis Past Medical History - General Information source: Patient - Social History Smoking Status: Current Every Day Smoker Chew tobacco use (# tins/day): No Frequency of alcohol use: None Drug Abuse: None Family History: CAD, COPD, DM, Hypertension, Malignancy Patient has suicidal ideation: No Patient has homicidal ideation: No - Past Medical History Cardiac Medical History: Reports: Hx Hypertension Denies: Hx Congestive Heart Failure, Hx Coronary Artery Disease, Hx Heart Attack, Hx Hypercholesterolemia Pulmonary Medical History: Reports: Hx Bronchitis, Hx Pneumonia - 1997 Denies: Hx Asthma, Hx COPD, Hx Intubation, Hx Tuberculosis Neurological Medical History: Reports: Hx Migraine. Denies: Hx Seizures Endocrine Medical History: Denies: Hx Diabetes Mellitus Type 1, Hx Diabetes Mellitus Type 2, Hx Hyperthyroidism, Hx Hypothyroidism Renal/ Medical History: Denies: Hx End Stage Renal Disease, Hx Kidney Stones, Hx Peritoneal Dialysis GI Medical History: Reports: Hx Gastroesophageal Reflux Disease. Denies: Hx Cirrhosis, Hx Crohn's Disease, Hx Hepatitis, Hx Ulcer, Hx Ulcerative Colitis Musculoskeletal Medical History: Denies Hx Arthritis, Denies Hx Gout, Denies Hx Multiple Sclerosis Skin Medical History: Denies Hx Eczema, Denies Hx Psoriasis Psychiatric Medical History: Reports: Hx Bipolar Disorder, Hx Depression Denies: Hx Schizophrenia Infectious Medical History: Denies: Hx Hepatitis Past Surgical History: Reports: Hx Tubal Ligation - Immunizations Hx Diphtheria, Pertussis, Tetanus Vaccination: No Review of Systems - Review of Systems Notes: REVIEW OF SYSTEMS GEN: Sweating ENT: Denies sore throat, nasal discharge, ear pain EYES: Denies blurry vision, eye pain, discharge CV: Denies chest pain, palpitations, edema RESP: As of breath GI: Denies abdominal pain, nausea, vomiting, diarrhea MSK: Denies joint pain/swelling, edema, SKIN: Denies rash, skin lesions LYMPH: Denies swollen glands/lymph nodes NEURO: Denies headache, focal weakness or numbness, dizziness PSYCH: Denies depression, suicidal or homicidal ideation PHYSICAL EXAMINATION General: No acute distress, well-nourished Head: Atraumatic, normocephalic ENT: Mouth normal, oropharynx moist, no exudates or tonsillar enlargement Eyes: Conjunctiva normal, pupils equal, lids normal Neck: No JVD, supple, no guarding CVS: Normal rate, regular rhythm, no murmurs Resp: No resp distress, equal and normal breath sounds bilaterally GI: Nondistended, soft, no tenderness to palpation, no rebound or guarding Ext: No deformities, no edema, normal range of motion in upper and lower ext Back: No CVA or midline TTP Skin: No rash, warm Lymphatic: No lymphadeopathy noted Neuro: Awake, alert. Face symmetric. GCS 15. Physical Exam - Vital signs Vitals: Temp Pulse Resp BP Pulse Ox 98.0 F 73 16 143/100 H 94 10/25/18 10:10 10/25/18 10:10 10/25/18 10:10 10/25/18 10:10 10/25/18 10:10 Course - Re-evaluation Re-evalutation: 10/25/18 12:46 Presents intermittent sweating. Recently discharged after elevated troponin and stent to the RCA. The symptoms are different than her anginal index symptoms. Today she is not sweaty on my exam. She has no signs of hyperthyroidism on exam. Her EKG and troponin are negative and after several days of sweating this rules out an STEMI. I think she is safe for discharge given her negative evaluation in the ED but may require further testing for things like thyroid abuse chromocytoma, etc. We talked about smoking in the setting of [place]. I have discussed with the patient there likely diagnosis, aftercare plan, follow-up plans and my usual and customary return precautions. They verbalized understanding of this. - Vital Signs Vital signs: Temp Pulse Resp BP Pulse Ox 98.0 F 73 16 143/100 H 94 10/25/18 10:10 10/25/18 10:10 10/25/18 10:10 10/25/18 10:10 10/25/18 10:10 - Laboratory Result Diagrams: 10/25/18 11:11 10/25/18 11:11 Laboratory results interpreted by me: 10/25/18 10/25/18 11:11 11:11 Hgb 15.6 H RDW 14.3 H APTT 37.9 H - EKG Interpretation by Me EKG shows normal: Sinus rhythm Rate: Normal Rhythm: NSR Discharge - Discharge Clinical Impression: Sweating Condition: Good Disposition: HOME, SELF-CARE Instructions: Angina Episode ([facility]) Additional Instructions: I do not think that your sweating represents angina however I have given you instructions for angina just in case. All of your cardiac testing today is normal. Please ask your primary care to check thyroid and perhaps other tests to determine the cause of the sweating. If it gets worse to get more short of breath with any chest pain please return to the ER immediately. Referrals: [facility] [Provider Group] - Follow up as needed
--- NOTE | 2018-10-25 12:29 | RADIOLOGY REPORT (SQ) ---
EXAM DESCRIPTION: CHEST 2 VIEWS COMPLETED DATE/TIME: 10/25/2018 11:37 am REASON FOR STUDY: sob COMPARISON: Chest films 10/17/2018, 11/29/2013 EXAM PARAMETERS: NUMBER OF VIEWS: two views TECHNIQUE: Digital Frontal and Lateral radiographic views of the chest acquired. RADIATION DOSE: NA LIMITATIONS: none FINDINGS: LUNGS AND PLEURA: No opacities, masses or pneumothorax. No pleural effusion. MEDIASTINUM AND HILAR STRUCTURES: No masses or contour abnormalities. HEART AND VASCULAR STRUCTURES: Heart normal size. No evidence for failure. BONES: No acute findings. HARDWARE: None in the chest. OTHER: No other significant finding. IMPRESSION: NO ACUTE RADIOGRAPHIC FINDING IN THE CHEST. TECHNICAL DOCUMENTATION: JOB ID: [id number] [employer]- All Rights Reserved Reading location - IP/workstation name: [email or web address]
[2018-10-25 13:44] VITALS: BP 123/76
--- NOTE | 2018-10-25 19:36 | EKG REPORT ---
SEVERITY:- NORMAL ECG - SINUS RHYTHM : Confirmed by: Radha Yañez MD 25-Oct-2018 19:36:09
== END 2018-10-25 13:54 | disposition home or self-care (01) ==
LOC: ER 10:03
DX: R06.02 Shortness of breath (principal); R61 Generalized hyperhidrosis; F17.200 Nicotine dependence, unspecified, uncomplicated; I10 Essential (primary) hypertension; Z98.51 Tubal ligation status
CPT/HCPCS: 36415; 71046; 80053; 82550; 84484; 85025; 85610; 85730; 93005; 93010; 99285

== ENCOUNTER → 2018-10-30 | Outpatient (CLI) | payer OTHER | LOC: CCC 16:49 | DX: I21.11 ST elevation (STEMI) myocardial infarction involving right coronary artery (principal) | CPT/HCPCS: 36415; 83036; 84443 ==

== ENCOUNTER → 2018-11-15 | Outpatient (CLI) | payer OTHER ==
--- NOTE | 2018-11-15 09:14 | WOMENS IMAGING REPORT ---
EXAM DESCRIPTION: SEAN HARRIS BILATERAL SCREEN COMPLETED DATE/TIME: 11/15/2018 8:23 am REASON FOR STUDY: Z12.31 ROUTINE BILATERAL SCREENING Z12.31 ENCNTR SCREEN MAMMOGRAM FOR MALIGNANT N EOPLASM OF TALHA COMPARISON: None. EXAM PARAMETERS: Standard craniocaudal and mediolateral oblique views of each breast recorded using digital acquisition. Read with the assistance of CAD. .[facility] - [facility] [employer] Version 9.2 LIMITATIONS: None. FINDINGS: No suspicious masses, suspicious calcifications or architectural distortion. No areas of c oncern. IMPRESSION: Negative MAMMOGRAM. BIRADS 1 BREAST DENSITY: b. There are scattered areas of fibroglandular density. BIRAD: ASSESSMENT: 1 NEGATIVE RECOMMENDATION: ROUTINE SCREENING COMMENT: The patient has been notified of the results by letter per MQSA requirements. Additional no tification policies are in place for contacting patient with suspicious or incomplete findings. Quality ID #[id number]: The [employer] recommends an annual screening mammogram for women aged 40 years or over. This facility utilizes a reminder system to ensure that all patients receive reminder letters, and/or direct phone calls for appointments. This includes reminders for routine scr eening mammograms, diagnostic mammograms, or other Breast Imaging Interventions when appropriate. Th is patient will be placed in the appropriate reminder system. TECHNICAL DOCUMENTATION: FINDING NUMBER: (1) ASSESSMENT: (1) JOB ID: [id number] [employer]- All Rights Reserved Reading location - IP/workstation name: [email or web address]
== END ==
LOC: WI 07:58
DX: Z12.31 Encounter for screening mammogram for malignant neoplasm of breast (principal)
CPT/HCPCS: 77067

== ENCOUNTER → 2018-11-30 | Outpatient (CLI) | payer OTHER ==
--- NOTE | 2018-11-30 12:08 | RADIOLOGY REPORT (SQ) ---
EXAM DESCRIPTION: U/S EXTREMITY NONVASCULAR LTD COMPLETED DATE/TIME: 11/30/2018 11:59 am REASON FOR STUDY: PAIN IN RIGHT FOREARM M79.631 PAIN IN RIGHT FOREARM COMPARISON: None. TECHNIQUE: Dynamic and static grayscale images acquired of the localized site of clinical concern an d recorded on PACS. Additional selected color Doppler and spectral images recorded. SITE OF CONCERN: Right forearm LIMITATIONS: None. FINDINGS: SKIN AND SUBCUTANEOUS TISSUES: No masses. No fluid collections. No edema. No foreign neeta s. DEEP SOFT TISSUES/MUSCLES: No masses. No fluid collections. No edema. VASCULAR: No increased or decreased vascularity. No occlusions. OTHER: No other significant finding. IMPRESSION: No acute findings. Specifically no evidence of pseudoaneurysm or hematoma to explain th e patient's clinical symptoms. TECHNICAL DOCUMENTATION: JOB ID: [id number] [employer]- All Rights Reserved Reading location - IP/workstation name: [email or web address]
== END ==
LOC: RAD 11:08
DX: M79.631 Pain in right forearm (principal)
CPT/HCPCS: 76882

== ENCOUNTER 2018-12-15 13:20 | Emergency (ER) | payer OTHER ==
[2018-12-15] MEDS ORDERED: AMOXICILLIN TRIHYD 250 MG CAPSULE PO ONE (13:37)
[2018-12-15] MEDS ORDERED: AMOXICILLIN TR/POT CLAVULANATE 500-125 MG TAB PO ONE (13:37)
[2018-12-15] MEDS ORDERED: DIPH/PERTUSS(ACELL)/TETANUS VAC/PF 0.5 ML SYR (>=10YO) IM ONE (13:38)
--- NOTE | 2018-12-15 13:42 | ER Document Report ---
ED Medical Screen (RME) - General Chief Complaint: Cat Bite Stated Complaint: POSSIBLE CAT BITE Time Seen by Provider: 12/15/18 13:29 Primary Care Provider: [facility] [Primary Care Provider] - Follow up as needed Notes: Patient is a 48-year-old female who presents to the emergency department with a cat bite to her left second finger. She states that the bite happened yesterday. She has had redness to her distal left second finger. Patient denies any fever, body aches, chills or any other symptoms. The cat is not immunized. Patient states that the cat was foaming at the mouth, hissing, and drooling today. Patient is not up-to-date on her tetanus vaccine. Exam: Cat scratch warner to patient's left hand. Tenderness to distal left second finger. I have greeted and performed a rapid initial assessment of this patient. A comprehensive ED assessment and evaluation of the patient, analysis of test results and completion of medical decision making process will be conducted by an additional ED providers. TRAVEL OUTSIDE OF THE [place] IN LAST 30 DAYS: No - Related Data Allergies/Adverse Reactions: gabapentin Allergy (Unknown, Verified 12/15/18 13:21) Anaphylaxis Past Medical History - Social History Frequency of alcohol use: None Drug Abuse: None - Past Medical History Cardiac Medical History: Reports: Hx Hypertension Denies: Hx Congestive Heart Failure, Hx Coronary Artery Disease, Hx Heart Attack, Hx Hypercholesterolemia Pulmonary Medical History: Reports: Hx Bronchitis, Hx Pneumonia - 1997 Denies: Hx Asthma, Hx COPD, Hx Intubation, Hx Tuberculosis Neurological Medical History: Reports: Hx Migraine. Denies: Hx Seizures Endocrine Medical History: Denies: Hx Diabetes Mellitus Type 1, Hx Diabetes Mellitus Type 2, Hx Hyperthyroidism, Hx Hypothyroidism Renal/ Medical History: Denies: Hx End Stage Renal Disease, Hx Kidney Stones, Hx Peritoneal Dialysis GI Medical History: Reports: Hx Gastroesophageal Reflux Disease. Denies: Hx Cirrhosis, Hx Crohn's Disease, Hx Hepatitis, Hx Ulcer, Hx Ulcerative Colitis Musculoskeltal Medical History: Denies Hx Arthritis, Denies Hx Gout, Denies Hx Multiple Sclerosis Skin Medical History: Denies Hx Eczema, Denies Hx Psoriasis Psychiatric Medical History: Reports: Hx Bipolar Disorder, Hx Depression Denies: Hx Schizophrenia Infectious Medical History: Denies: Hx Hepatitis Past Surgical History: Reports: Hx Cardiac Catheterization, Hx Tubal Ligation - Immunizations Hx Diphtheria, Pertussis, Tetanus Vaccination: No Physical Exam - Vital signs Vitals: Temp Pulse Resp BP Pulse Ox 97.3 F 83 16 140/102 H 99 12/15/18 13:27 12/15/18 13:27 12/15/18 13:27 12/15/18 13:27 12/15/18 13:27 Course - Vital Signs Vital signs: Temp Pulse Resp BP Pulse Ox 97.3 F 83 16 140/102 H 99 12/15/18 13:27 12/15/18 13:27 12/15/18 13:27 12/15/18 13:27 12/15/18 13:27 Doctor's Discharge - Discharge [facility]errals: [facility] [Primary Care Provider] - Follow up as needed
--- NOTE | 2018-12-15 14:20 | RADIOLOGY REPORT (SQ) ---
EXAM DESCRIPTION: FINGER LEFT COMPLETED DATE/TIME: 12/15/2018 1:48 pm REASON FOR STUDY: cat bite COMPARISON: None. NUMBER OF VIEWS: Three views. TECHNIQUE: AP, lateral, and oblique images acquired of the left second finger. LIMITATIONS: None. FINDINGS: MINERALIZATION: Normal. BONES: No acute fracture or dislocation. No worrisome bone lesions. SOFT TISSUES: No soft tissue swelling. No foreign body. OTHER: No other significant finding. IMPRESSION: No fracture or dislocation of the left index finger. No radiopaque foreign body. TECHNICAL DOCUMENTATION: JOB ID: [id number] [employer]- All Rights Reserved Reading location - IP/workstation name: [email or web address]
--- NOTE | 2018-12-15 14:32 | ER Document Report ---
ED General - General Chief Complaint: Cat Bite Stated Complaint: POSSIBLE CAT BITE Time Seen by Provider: 12/15/18 13:29 Primary [facility]: [facility] [Primary Care Provider] - Follow up as needed Notes: 48-year-old female who presents to the emergency department with a cat bite to her left second finger. She states that the bite happened yesterday. She has had redness to her distal left second finger. Patient denies any fever, body aches, chills or any other symptoms. The cat is not immunized. Patient states that the cat was foaming at the mouth, hissing, and drooling today. Patient is not up-to-date on her tetanus vaccine. TRAVEL OUTSIDE OF THE [place] IN LAST 30 DAYS: No - Related Data Allergies/Adverse Reactions: gabapentin Allergy (Unknown, Verified 12/15/18 13:21) Anaphylaxis Past Medical History - Social History Smoking Status: Current Every Day Smoker Frequency of alcohol use: None Drug Abuse: None Family History: CAD, COPD, DM, Hypertension, Malignancy Patient has suicidal ideation: No Patient has homicidal ideation: No - Past Medical History Cardiac Medical History: Reports: Hx Hypertension Denies: Hx Congestive Heart Failure, Hx Coronary Artery Disease, Hx Heart Attack, Hx Hypercholesterolemia Pulmonary Medical History: Reports: Hx Bronchitis, Hx Pneumonia - 1997 Denies: Hx Asthma, Hx COPD, Hx Intubation, Hx Tuberculosis Neurological Medical History: Reports: Hx Migraine. Denies: Hx Seizures Endocrine Medical History: Denies: Hx Diabetes Mellitus Type 1, Hx Diabetes Mellitus Type 2, Hx Hyperthyroidism, Hx Hypothyroidism Renal/ Medical History: Denies: Hx End Stage Renal Disease, Hx Kidney Stones, Hx Peritoneal Dialysis GI Medical History: Reports: Hx Gastroesophageal Reflux Disease. Denies: Hx Cirrhosis, Hx Crohn's Disease, Hx Hepatitis, Hx Ulcer, Hx Ulcerative Colitis Musculoskeletal Medical History: Denies Hx Arthritis, Denies Hx Gout, Denies Hx Multiple Sclerosis Skin Medical History: Denies Hx Eczema, Denies Hx Psoriasis Psychiatric Medical History: Reports: Hx Bipolar Disorder, Hx Depression Denies: Hx Schizophrenia Infectious Medical History: Denies: Hx Hepatitis Past Surgical History: Reports: Hx Cardiac Catheterization, Hx Tubal Ligation - Immunizations Hx Diphtheria, Pertussis, Tetanus Vaccination: No Review of Systems - Review of Systems Constitutional: See HPI EENT: No symptoms reported Cardiovascular: No symptoms reported Respiratory: No symptoms reported Gastrointestinal: No symptoms reported Genitourinary: No symptoms reported Female Genitourinary: No symptoms reported Musculoskeletal: No symptoms reported Skin: See HPI Hematologic/Lymphatic: No symptoms reported Neurological/Psychological: See HPI Physical Exam - Vital signs Vitals: Temp Pulse Resp BP Pulse Ox 97.3 F 83 16 140/102 H 99 12/15/18 13:27 12/15/18 13:27 12/15/18 13:27 12/15/18 13:27 12/15/18 13:27 - Notes Notes: PHYSICAL EXAMINATION: Reviewed vital signs and charting by RN GENERAL: Alert, interacts well. No acute distress. HEAD: Normocephalic, atraumatic. EYES: Pupils equal and round. Extraocular movements intact. ENT: Oral mucosa moist, tongue midline. NECK: Full range of motion. Trachea midline. EXTREMITIES: Moves all 4 extremities spontaneously. No edema, No cyanosis. PSYCH: Normal affect, normal mood. SKIN: Warm, dry, normal turgor. Several healing scratches along the medial aspect of the right hand and a small puncture along the edge of the nail in the ring finger. Course - Re-evaluation Re-evalutation: 12/15/18 14:28 Overall well-appearing, cat is in patient's possession. Patient received a dose of Augmentin in the emergency department and her tetanus booster. Plan is to instruct patient to take the cat into animal control for a 10-day period of observation prior to her receiving PEP. At this time wound appears clean and there is no evidence of purulent discharge or signs of infection. Patient is afebrile. She is stable for discharge. - Vital Signs Vital signs: Temp Pulse Resp BP Pulse Ox 97.3 F 83 16 140/102 H 99 12/15/18 13:27 12/15/18 13:27 12/15/18 13:27 12/15/18 13:27 12/15/18 13:27 Discharge - Discharge Clinical Impression: Cat bite of finger Qualifiers: Encounter type: initial encounter Qualified Code(s): S61.259A - Open bite of unspecified finger without damage to nail, initial encounter; W55.01XA - Bitten by cat, initial encounter Condition: Good Disposition: HOME, SELF-CARE Additional Instructions: You were seen in the emergency department this afternoon for a cat bite. It is important that you take your In for a 10-day period of observation and for a email production specialist exam. Typically, if the cat is alive at the 10-day reddy Most likely does not have rabies. If the cat dies, then the head will get sent off for analysis It is only after 10 days where the decision is to be made if you need post exposure prophylaxis. At this time you do not. Please take the antibiotics as directed until they are gone. If he starts to develop fever, redness and warmth at the site of your scratches or bite, you get purulent discharge from the wound, red streaks moving up your arms, your joints get red and hot and you are unable to move them at all, please immediately return to the emergency department for reevaluation. [facility]errals: [facility] [Primary Care Provider] - Follow up as needed
[2018-12-15 14:44] VITALS: BP 115/92
== END 2018-12-15 14:42 | disposition home or self-care (01) ==
LOC: ER 13:20
DX: S61.251A Open bite of left index finger without damage to nail, initial encounter (principal); W55.01XA Bitten by cat, initial encounter; F17.200 Nicotine dependence, unspecified, uncomplicated; Z23 Encounter for immunization; Z98.51 Tubal ligation status
CPT/HCPCS: 99283; 90471; 73140; 90715; J3490

== ENCOUNTER → 2019-05-27 | Outpatient (CLI) | payer OTHER ==
--- NOTE | 2019-05-27 14:33 | RADIOLOGY REPORT (SQ) ---
EXAM DESCRIPTION: HIPS BILATERAL COMPLETED DATE/TIME: 05/27/2019 10:57 am REASON FOR STUDY: HEMARTHROSIS, UNSPECIFIED JOINT M25.00 HEMARTHROSIS, UNSPECIFIED JOINT COMPARISON: None. NUMBER OF VIEWS: Two views TECHNIQUE: AP pelvis and additional frog-leg view of both hips. LIMITATIONS: None. FINDINGS: MINERALIZATION: Normal. HIPS: No acute fracture or dislocation. No worrisome bone lesions. PELVIS AND SACRUM: No acute fracture or dislocation. No worrisome bone lesions. PUBIS AND ISCHIUM: No acute fracture. LOWER LUMBAR SPINE: No significant findings as visualized. SOFT TISSUES: No findings. OTHER: No other significant finding. IMPRESSION: NEGATIVE STUDY OF THE PELVIS AND HIPS. TECHNICAL DOCUMENTATION: JOB ID: [id number] [employer]- All Rights Reserved Reading location - IP/workstation name: [email or web address]
== END ==
LOC: OD 10:27
DX: M25.00 Hemarthrosis, unspecified joint (principal)
CPT/HCPCS: 36415; 73522; 85652; 86038; 86225

== ENCOUNTER → 2019-06-19 | Outpatient (CLI) | payer OTHER ==
--- NOTE | 2019-06-20 13:25 | RADIOLOGY REPORT (SQ) ---
EXAM DESCRIPTION: MRILLJ WO COMPLETED DATE/TIME: 06/19/2019 2:01 pm REASON FOR STUDY: L HIP PAIN COMPARISON: Recent radiographs. TECHNIQUE: Noncontrast multiplanar MR imaging. Sequences include wide field of view pelvis and focu sed hip of interest. Fat sensitive, water sensitive, and cartilage sensitive sequences. Specific hip of interest: Left LIMITATIONS: None. FINDINGS: MARROW SIGNAL: Normal, no evidence of replacement, occult fracture or suspicious bone lesi on in the visualized lumbar spine, pelvis and proximal femurs. Small cyst on the iliac side of the r ight SI joint. SPECIFIC HIP OF INTEREST: No evidence of fracture or AVN. No evidence of effusion. No regional mas s or significant muscle tear. Minimal gluteal tendinosis, suspect mild greater trochanteric bursa sy ndrome. No subchondral cysts or erosions. No secondary signs of labral tear. OPPOSITE HIP: Normal. No effusion or other significant finding on limited sequences. REMAINDER OF THE OSSEOUS PELVIS: As above. SI joints otherwise look normal. Symphysis pubis intact. INTRA- AND EXTRAPELVIC SOFT TISSUES: No intrapelvic mass or free fluid. Bladder normal. No extrapelv ic mass. No inguinal hernia or adenopathy. IMPRESSION: 1. No acute or suspicious left hip abnormality allowing for probable mild greater trochanteric syndro me. 2. Small iliac sided cyst adjacent to the right SI joint suggests some SI joint arthropathy. Reading location - IP/workstation name: [email or web address]ITAL[facility]ANDA
--- NOTE | 2019-06-21 12:48 | RADIOLOGY REPORT (SQ) ---
EXAM DESCRIPTION: MRI LUMBAR SPINE WITHOUT COMPLETED DATE/TIME: 06/19/2019 2:01 pm REASON FOR STUDY: LOW BACK PAIN M25.552 PAIN IN LEFT HIP M54.5 LOW BACK PAIN COMPARISON: AP, lateral, oblique and L5-S1 spot views of the lumbosacral spine from 07/11/2017. TECHNIQUE: Sagittal and Axial imaging includes T1, T2, STIR and gradient echo sequences. Coronal T2/ HASTE imaging. LIMITATIONS: None. FINDINGS: VISUALIZED UPPER ABDOMEN: Limited evaluation. SEGMENTATION: There are 5 lumbar-type vertebral bodies. There is no transitional anatomy at the lumb osacral junction. ALIGNMENT: Grade 1 retrolisthesis of L5 relative to S1. VERTEBRAE: The lumbar vertebral body heights are preserved. There is no fracture. BONE MARROW: Normal. DISC SIGNAL: The L4-L5 intervertebral disc space is desiccated. The L5-S1 intervertebral disc space is narrowed and desiccated. POSTERIOR ELEMENTS: Intact. HARDWARE: None in the spine. CORD AND CONUS: The conus medullaris terminates at the level of L1-L2 and it is normal in caliber and signal intensity. SOFT TISSUES: No abnormality. L1-L2: No spinal or foraminal stenosis. L2-L3: No spinal or foraminal stenosis. L3-L4: No spinal or foraminal stenosis. L4-L5: Mild degeneration of the facet joints. There is no spinal or foraminal stenosis. L5-S1: Mild degeneration of the facet joints and central disc protrusion with a probable annular tear ; the disc protrusion encroaches on the ventral aspect of the thecal sac without mass effect upon th e nerve roots. There is no spinal stenosis. LOWER THORACIC: No stenosis. SACRUM: Intact. OTHER: No other findings. IMPRESSION: Mild degenerative spondylosis and facet arthropathy at L4-L5 and L5-S1 with a central di sc protrusion and probable annular tear at L5-S1 that encroaches on the ventral aspect of the thecal sac without mass effect upon the nerve roots. TECHNICAL DOCUMENTATION: JOB ID: [id number] 2010 [employer]- All Rights Reserved Reading location - IP/workstation name: [email or web address]
== END ==
LOC: RAD 12:25
PROVIDERS: ATTEND Internal Medicine
DX: M25.552 Pain in left hip (principal); M47.897 Other spondylosis, lumbosacral region; M54.5 Low back pain
CPT/HCPCS: 72148

== ENCOUNTER → 2020-03-10 | Outpatient (CLI) | payer OTHER ==
--- NOTE | 2020-03-10 11:25 | RADIOLOGY REPORT (SQ) ---
EXAM DESCRIPTION: ELBOW LEFT AP/LAT IMAGES COMPLETED DATE/TIME: 03/10/2020 11:11 am REASON FOR STUDY: PAIN IN LEFT ELBOW M25.522 PAIN IN LEFT ELBOW M79.602 PAIN IN LEFT ARM COMPARISON: None. NUMBER OF VIEWS: Two views. TECHNIQUE: AP and lateral radiographic images acquired of the left elbow. LIMITATIONS: None. FINDINGS: MINERALIZATION: Normal. BONES: No acute fracture or dislocation. No worrisome bone lesions. JOINT: No effusion. SOFT TISSUES: No soft tissue swelling. No foreign body. OTHER: No other significant finding. IMPRESSION: NEGATIVE STUDY OF THE LEFT ELBOW. NO RADIOGRAPHIC EVIDENCE OF ACUTE INJURY. TECHNICAL DOCUMENTATION: JOB ID: [id number] 2010 [employer]- All Rights Reserved Reading location - IP/workstation name: [email or web address]
--- NOTE | 2020-03-10 11:26 | RADIOLOGY REPORT (SQ) ---
EXAM DESCRIPTION: FOREARM LEFT COMPLETED DATE/TIME: 03/10/2020 11:11 am REASON FOR STUDY: PAIN IN LEFT ARM M25.522 PAIN IN LEFT ELBOW M79.602 PAIN IN LEFT ARM COMPARISON: None. NUMBER OF VIEWS: Two views. TECHNIQUE: Two radiographic images acquired of the left forearm, including elbow and wrist in at [address] one projection. LIMITATIONS: None. FINDINGS: MINERALIZATION: Normal. BONES: No acute fracture. No worrisome bone lesions. SOFT TISSUES: No obvious swelling or foreign body. OTHER: No other significant finding. IMPRESSION: NEGATIVE STUDY OF THE LEFT FOREARM. NO RADIOGRAPHIC EVIDENCE OF ACUTE INJURY. TECHNICAL DOCUMENTATION: JOB ID: [id number] 2010 [employer]- All Rights Reserved Reading location - IP/workstation name: [email or web address]
== END ==
LOC: CCC 10:28
PROVIDERS: ATTEND Internal Medicine
DX: M25.522 Pain in left elbow (principal); M79.602 Pain in left arm